=== PATIENT | male | born 1940 | race Caucasian/White ===

== ENCOUNTER → 2018-02-09 08:00 | Outpatient (CLI) | payer MEDICARE, SELFPAY ==
[2018-02-09 10:24] LABS: AST(SGOT) 33 U/L (15-37); Alanine Aminotransfer ALT/SGPT 43 U/L (16-61); Albumin, Serum 3.7 g/dL (3.2-5.0); Alkaline Phosphatase 70 U/L (45-117); Bilirubin, Direct 0.19 mg/dL (0.00-0.30); Cholesterol 107 mg/dL (200); Globulin 3.6 g/dL (2.2-4.2); High Density Lipoprotein 26 mg/dL; Protein, Total 7.3 g/dL (6.4-8.2); Triglycerides 211 mg/dL; Very Low Density Lipoprotein 42 mg/dL (5-40)
[2018-02-09 10:39] LABS: Thyroid Stim Hormone (TSH) 0.46 uIU/mL (0.358-3.74)
== END ==
PROVIDERS: Family Provider Family Medicine; PCP Family Medicine; Visit Provider Physician Assistant Medical
DX: E78.5 Hyperlipidemia, unspecified (principal); Z79.899 Other long term (current) drug therapy; E03.9 Hypothyroidism, unspecified
CPT/HCPCS: 36415; 80061; 80076; 84443

== ENCOUNTER → 2018-09-30 08:38 | Outpatient (CLI) | payer MEDICARE, SELFPAY ==
[2018-09-30 10:20] LABS: Absolute Neutrophil Count 2.9 X10^3/uL (2.0-7.7); Basophil# 0.02 X10^3/uL; Basophil% 0.4 % (0-1); Eosinophil# 0.16 X10^3/uL; Hematocrit 45.7 % (40-54); Hemoglobin 15.6 g/dl (13.0-16.5); Lymphocyte % 33.3 % (19-41); Mean Corp Hgb Conc 34.1 g/gl (32-36); Mean Corpuscular Hgb 32.7 pg (27.0-32.0); Mean Corpuscular Volume 95.8 fL (80-94); Mean Platelet Vol. 10.7 fl (6.2-12.0); Monocyte% 9.3 % (0-10); Neutrophil % 53.6 % (47-70); Platelet Count 181 K/mm3 (150-450); RBC Distribution Width CV 13.4 % (11.6-14.6); RBC Distribution Width SD 45.4 fl (35.1-43.9); Red Blood Count 4.77 M/mm3 (4.6-6.2); White Blood Count 5.4 K/mm3 (4.4-11.0)
[2018-09-30 10:24] LABS: POSITIVE COUNT NO; POSITIVE DIFFERENTIAL NO; POSITIVE MORPHOLOGY NO
[2018-09-30 10:34] LABS: Microalbumin,Random Urine 10.6 mg/L (NO RANGE EST.); Microalbumin:Creatinine Ratio 6.4 mg/g CRE (<30 mg/g CRE)
[2018-09-30 11:00] LABS: ALB/GLOB Ratio 0.9 RATIO (0.9-2.4); AST(SGOT) 28 U/L (15-37); Alanine Aminotransfer ALT/SGPT 35 U/L (16-61); Albumin, Serum 3.5 g/dL (3.2-5.0); Alkaline Phosphatase 70 U/L (45-117); Anion Gap 7 (5-15); BUN 17 mg/dL (7-18); BUN/Creat Ratio 18.2 RATIO (10-20); Bilirubin, Direct 0.16 mg/dL (0.00-0.30); Calcium,Total 8.7 mg/dL (8.5-10.1); Chloride 105 mmol/L (98-107); Cholesterol 118 mg/dL (200); Creatinine, Serum 0.93 mg/dL (0.70-1.30); EST Glomerular Filtration Rate 83 mL/min (>60); Est Glom Filt Rate - Afr Amer 101 mL/min (>60); Globulin 3.8 g/dL (2.2-4.2); Glucose 98 mg/dL (74-106); High Density Lipoprotein 29 mg/dL; Protein, Total 7.3 g/dL (6.4-8.2); Sodium Level 137 mmol/L (136-145); Thyroid Stim Hormone (TSH) 0.58 uIU/mL (0.358-3.74); Triglycerides 146 mg/dL; Very Low Density Lipoprotein 29 mg/dL (5-40)
== END ==
PROVIDERS: Family Provider Family Medicine; PCP Family Medicine; Referring Provider Family Medicine; Visit Provider Family Medicine
DX: I10 Essential (primary) hypertension (principal); E03.9 Hypothyroidism, unspecified; I25.810 Atherosclerosis of coronary artery bypass graft(s) without angina pectoris; R63.5 Abnormal weight gain
CPT/HCPCS: 36415; 80053; 80061; 82043; 82248; 82570; 84443; 85025

== ENCOUNTER → 2019-04-16 09:36 | Outpatient (CLI) | payer MEDICARE, SELFPAY ==
[2019-04-16 08:52] VITALS: BMI 27.7
[2019-04-16 11:19] LABS: AST(SGOT) 25 U/L (15-37); Alanine Aminotransfer ALT/SGPT 29 U/L (16-61); Albumin, Serum 3.7 g/dL (3.2-5.0); Alkaline Phosphatase 90 U/L (45-117); Bilirubin, Direct 0.18 mg/dL (0.00-0.30); Cholesterol 124 mg/dL (200); Globulin 4.1 g/dL (2.2-4.2); High Density Lipoprotein 31 mg/dL; Protein, Total 7.8 g/dL (6.4-8.2); Triglycerides 160 mg/dL; Very Low Density Lipoprotein 32 mg/dL (5-40)
== END ==
PROVIDERS: Family Provider Family Medicine; PCP Family Medicine; Referring Provider Physician Assistant Medical; Visit Provider Physician Assistant Medical
DX: E78.5 Hyperlipidemia, unspecified (principal)
CPT/HCPCS: 36415; 80061; 80076

== ENCOUNTER → 2019-12-15 | Outpatient (CLI) | payer MEDICARE, SELFPAY ==
[2019-04-16 08:52] VITALS: BMI 27.7
[2019-12-15 07:46] LABS: Absolute Lymphocyte Count 2.75 X10^3/uL (0.83-4.51); Absolute Neutrophil Count 4.7 X10^3/uL (2.0-7.7); Basophil# 0.04 X10^3/uL; Basophil% 0.5 % (0-1); Eosinophil# 0.19 X10^3/uL; Eosinophils% 2.2 % (0-5); Hematocrit 47.3 % (40-54); Hemoglobin 15.8 g/dL (13.0-16.5); Lymphocyte # 2.75 X10^3/ul (4.0); Lymphocyte % 32.3 % (19-41); Mean Corp Hgb Conc 33.4 g/dL (32-36); Mean Corpuscular Hgb 31.3 pg (27.0-32.0); Mean Corpuscular Volume 93.7 fL (80-94); Mean Platelet Vol. 9.8 fl (6.2-12.0); Monocyte# 0.76 X10^3/uL; Monocyte% 8.9 % (0-10); NRBC Flagged by Analyzer 0 % (0-5); Neutrophil # 4.74 X10^3/uL (2.7-7.7); Neutrophil % 55.7 % (47-70); Platelet Count 224 K/mm3 (150-450); RBC Distribution Width CV 13.1 % (11.6-14.6); RBC Distribution Width SD 44.8 fl (35.1-43.9); Red Blood Count 5.05 M/mm3 (4.6-6.2); White Blood Count 8.5 K/mm3 (4.4-11.0)
[2019-12-15 08:04] LABS: Microalbumin,Random Urine 9.6 mg/L (NO RANGE EST.); Microalbumin:Creatinine Ratio 7.1 mg/g CRE (<30 mg/g CRE)
[2019-12-15 08:10] LABS: ALB/GLOB Ratio 0.9 RATIO (0.9-2.4); AST(SGOT) 20 U/L (15-37); Alanine Aminotransfer ALT/SGPT 26 U/L (16-61); Albumin, Serum 3.6 g/dL (3.2-5.0); Alkaline Phosphatase 97 U/L (45-117); Anion Gap 9 (5-15); BUN 19 mg/dL (7-18); BUN/Creat Ratio 15.8 RATIO (10-20); Calcium,Total 9.5 mg/dL (8.5-10.1); Chloride 102 mmol/L (98-107); Cholesterol 118 mg/dL (200); EST Glomerular Filtration Rate 62 mL/min (>60); Est Glom Filt Rate - Afr Amer 75 mL/min (>60); Globulin 4.2 g/dL (2.2-4.2); Glucose 103 mg/dL (74-106); High Density Lipoprotein 33 mg/dL; Potassium 4.3 mmol/L (3.5-5.1); Protein, Total 7.8 g/dL (6.4-8.2); Sodium Level 136 mmol/L (136-145); Triglycerides 120 mg/dL; Very Low Density Lipoprotein 24 mg/dL (5-40)
== END | disposition home or self-care (01) ==
PROVIDERS: Physician Assistant Medical; PCP Family Medicine; Referring Provider Family Medicine; Visit Provider Family Medicine
DX: I10 Essential (primary) hypertension (principal); I25.810 Atherosclerosis of coronary artery bypass graft(s) without angina pectoris; R63.4 Abnormal weight loss; E78.5 Hyperlipidemia, unspecified
CPT/HCPCS: 36415; 80053; 80061; 82043; 82248; 82570; 85025

== ENCOUNTER → 2020-06-13 08:14 | Outpatient (CLI) | payer MEDICARE, SELFPAY ==
[2020-04-27 13:02] VITALS: BMI 26.9
[2020-06-13 08:57] LABS: AST(SGOT) 26 U/L (15-37); Alanine Aminotransfer ALT/SGPT 30 U/L (16-61); Albumin, Serum 3.8 g/dL (3.2-5.0); Alkaline Phosphatase 86 U/L (45-117); Cholesterol 134 mg/dL (200); Globulin 4.2 g/dL (2.2-4.2); High Density Lipoprotein 33 mg/dL; Triglycerides 178 mg/dL; Very Low Density Lipoprotein 36 mg/dL (5-40)
[2020-06-13 14:56] LABS: PSA,Total - Annual Screen 1.72 ng/mL (0.00-4.00)
== END ==
PROVIDERS: PCP Family Medicine; Referring Provider Physician Assistant Medical; Visit Provider Physician Assistant Medical
DX: E78.5 Hyperlipidemia, unspecified (principal); Z12.5 Encounter for screening for malignant neoplasm of prostate
CPT/HCPCS: 36415; 80061; 80076; 84153; G0103

== ENCOUNTER → 2020-10-24 09:06 | Outpatient (CLI) | payer MEDICARE, SELFPAY ==
[2020-04-27 13:02] VITALS: BMI 26.9
[2020-10-24 10:15] LABS: Microalbumin,Random Urine 15.2 mg/L (NO RANGE EST.); Microalbumin:Creatinine Ratio 13.7 mg/g CRE (<30 mg/g CRE)
[2020-10-24 10:57] LABS: ALB/GLOB Ratio 0.9 RATIO (0.9-2.4); AST(SGOT) 26 U/L (15-37); Alanine Aminotransfer ALT/SGPT 31 U/L (16-61); Albumin, Serum 3.7 g/dL (3.2-5.0); Alkaline Phosphatase 81 U/L (45-117); Anion Gap 6 (5-15); BUN 17 mg/dL (7-18); Bilirubin, Direct 0.21 mg/dL (0.00-0.30); Calcium,Total 9.4 mg/dL (8.5-10.1); Chloride 102 mmol/L (98-107); Cholesterol 130 mg/dL (200); EST Glomerular Filtration Rate 77 mL/min (>60); Est Glom Filt Rate - Afr Amer 93 mL/min (>60); Glucose 94 mg/dL (74-106); High Density Lipoprotein 31 mg/dL; Potassium 4.6 mmol/L (3.5-5.1); Protein, Total 7.7 g/dL (6.4-8.2); Sodium Level 135 mmol/L (136-145); Thyroid Stim Hormone (TSH) 4.08 uIU/mL (0.358-3.74); Triglycerides 182 mg/dL; Very Low Density Lipoprotein 36 mg/dL (5-40)
== END ==
PROVIDERS: PCP Family Medicine; Referring Provider Physician Assistant Medical; Visit Provider Physician Assistant Medical
DX: I10 Essential (primary) hypertension (principal); E03.9 Hypothyroidism, unspecified
CPT/HCPCS: 36415; 80053; 80061; 82043; 82248; 82570; 84439; 84443

== ENCOUNTER 2021-09-03 08:41 | Outpatient (CLI) | payer MEDICARE, SELFPAY ==
[2021-09-03 10:58] LABS: AST(SGOT) 24 U/L (15-37); Alanine Aminotransfer ALT/SGPT 33 U/L (16-61); Albumin, Serum 3.6 g/dL (3.2-5.0); Alkaline Phosphatase 77 U/L (45-117); Bilirubin, Direct 0.19 mg/dL (0.00-0.30); Cholesterol 123 mg/dL (200); Globulin 3.9 g/dL (2.2-4.2); High Density Lipoprotein 30 mg/dL; Protein, Total 7.5 g/dL (6.4-8.2); Triglycerides 163 mg/dL; Very Low Density Lipoprotein 33 mg/dL (5-40)
[2021-09-03 11:11] LABS: T4 Free Direct 1.08 ng/dL (0.76-1.46); Thyroid Stim Hormone (TSH) 1.04 uIU/mL (0.358-3.74)
== END 2021-09-03 23:59 | disposition short-term general hospital (02) ==
LOC: LAB 08:43
PROVIDERS: PCP Family Medicine; Referring Provider Internal Medicine Cardiovascular Disease; Visit Provider Internal Medicine Cardiovascular Disease
DX: E78.00 Pure hypercholesterolemia, unspecified (principal); E03.9 Hypothyroidism, unspecified
CPT/HCPCS: 36415; 80061; 80076; 84439; 84443

== ENCOUNTER 2021-09-04 10:33 | Outpatient (CLI) | payer MEDICARE, SELFPAY ==
[2021-09-04 13:00] LABS: Microalbumin,Random Urine 65.6 mg/L (NO RANGE EST.); Microalbumin:Creatinine Ratio 58.1 mg/g CRE (<30 mg/g CRE)
== END 2021-09-04 23:59 | disposition short-term general hospital (02) ==
LOC: MFPLAB 10:34
PROVIDERS: PCP Family Medicine; Referring Provider Family Medicine; Visit Provider Family Medicine
DX: Z00.00 Encounter for general adult medical examination without abnormal findings (principal); I10 Essential (primary) hypertension
CPT/HCPCS: 82043; 82570

== ENCOUNTER 2022-03-04 08:45 | Outpatient (CLI) | payer MEDICARE, SELFPAY ==
[2022-03-04 10:29] LABS: Cholesterol 127 mg/dL (200); High Density Lipoprotein 30 mg/dL; Triglycerides 153 mg/dL; Very Low Density Lipoprotein 31 mg/dL (5-40)
[2022-03-04 10:33] LABS: AST(SGOT) 27 U/L (15-37); Alanine Aminotransfer ALT/SGPT 37 U/L (16-61); Albumin, Serum 3.8 g/dL (3.2-5.0); Alkaline Phosphatase 71 U/L (45-117); Anion Gap 5 (5-15); BUN 20 mg/dL (7-18); BUN/Creat Ratio 21.1 RATIO (10-20); Bilirubin, Direct 0.19 mg/dL (0.00-0.30); Calcium,Total 9.5 mg/dL (8.5-10.1); Chloride 102 mmol/L (98-107); Creatinine, Serum 0.95 mg/dL (0.70-1.30); EST Glomerular Filtration Rate 81 mL/min (>60); Est Glom Filt Rate - Afr Amer 98 mL/min (>60); Globulin 3.8 g/dL (2.2-4.2); Glucose 101 mg/dL (74-106); Potassium 4.3 mmol/L (3.5-5.1); Protein, Total 7.6 g/dL (6.4-8.2); Sodium Level 134 mmol/L (136-145)
[2022-03-04 10:35] LABS: Microalbumin,Random Urine 17.2 mg/L (NO RANGE EST.); Microalbumin:Creatinine Ratio 12.6 mg/g CRE (<30 mg/g CRE)
[2022-03-04 10:43] LABS: Vitamin D,25 Hydroxy 53.8 ng/mL
== END 2022-03-04 23:59 | disposition home or self-care (01) ==
PROVIDERS: PCP Family Medicine; Referring Provider Physician Assistant Medical; Visit Provider Physician Assistant Medical
DX: I10 Essential (primary) hypertension (principal); E78.5 Hyperlipidemia, unspecified; N18.2 Chronic kidney disease, stage 2 (mild)
CPT/HCPCS: 36415; 80053; 80061; 82043; 82248; 82306; 82570

== ENCOUNTER 2022-06-07 08:28 | Emergency (ER) | payer MEDICARE, SELFPAY ==
[2022-06-07 08:31] VITALS: BP 180/83; PULSE 59; RESP 16; TEMP 36.4; O2SAT 98; BMI 26.4
--- NOTE | 2022-06-07 08:43 | EKG12_ITS ---
Test Reason : DIZZY Blood Pressure : / mmHG Vent. Rate : 057 BPM Atrial Rate : 057 BPM P-R Int : 200 ms QRS Dur : 094 ms QT Int : 422 ms P-R-T Axes : 000 -09 045 degrees QTc Int : 410 ms Sinus bradycardia with marked sinus arrhythmia Otherwise normal ECG Confirmed by SOLIS MUSA, MELISSA ([id number]), scientific editor ANJALI PEREZ ([id number]) on 06/10/2022 11:38:04 AM Referred By: Confirmed By:MELISSA ELY MD
--- NOTE | 2022-06-07 08:43 | CT_ITS ---
STUDY: CTA HEAD AND NECK WITH CONTRAST REASON FOR EXAM: Male, 82 years old. Vertigo. RADIATION DOSAGE (If Supplied By Facility): CTDIvol = ( 30.61 ) mGy, DLP = ( 1451.54 ) mGycm TECHNIQUE: CT angiography was performed with a multi-detector CT scanner. Data acquisition was obtained from the skull base through the vertex following intravenous administration of IV 100mL Isovue-[id number]. MIP images were reconstructed from the axial data set. Post-processing of the angiographic images was performed, with multiplanar reformation and 3D reconstruction. Individualized dose optimization techniques were used for this CT. COMPARISON: No relevant priors. FINDINGS: Normal bilateral petrous carotid arteries. Normal right cavernous carotid artery with a normal supraclinoid bifurcation. There is calcified plaque formation of the left cavernous carotid artery, without a cross-sectional luminal stenosis. Normal right A1 segments of the anterior cerebral artery. Normal left A1 segments of the anterior cerebral artery. Normal intact anterior communicating artery (ACOM). Normal bilateral A2 segments of the anterior cerebral arteries. Normal right M1 and M2 segments of the middle cerebral arteries, with a normal M1 bifurcation. Normal left M1 and M2 segments of the middle cerebral arteries, with a normal M1 bifurcation. Normal right posterior communicating artery (PCOM). Normal left posterior communicating artery (PCOM). Normal bilateral vertebral arteries. Normal basilar artery with a normal basilar bifurcation. The visualized bilateral superior cerebellar (SCA) arteries are normal. Normal bilateral P1, P2 and visualized P3 segments of the posterior cerebral arteries. There is no demonstrated aneurysm of the ruby of [place]. Atherosclerotic calcification of the vertebral arteries. Cerebral atrophy. AORTIC ARCH: There is atherosclerotic calcific plaque formation of the aortic arch and great vessels arising from the aortic arch, without a hemodynamically significant stenosis. There is a normal origin of the brachiocephalic, left common carotid, and left subclavian arteries. Prior CABG. Atherosclerotic calcific plaques at the origin of the left common carotid artery and left subclavian artery. RIGHT CAROTID ARTERIES: Normal right common carotid artery (CCA). Normal right common carotid bulb. There is mild atherosclerotic plaque formation of the origin of the right internal carotid artery with less than 50% cross sectional diameter stenosis. Normal visualized cervical portion of the right internal carotid artery. Normal origin of the right external carotid artery (ECA). LEFT CAROTID ARTERIES: Normal left common carotid artery (CCA). Normal left common carotid bulb. There is mild atherosclerotic plaque formation of the origin of the left internal carotid artery with less than 50% cross sectional diameter stenosis. Normal visualized cervical portion of the left internal carotid artery. Normal origin of the left external carotid artery (ECA). VERTEBRAL ARTERIES: Normal bilateral vertebral arteries. CT/CTA Head AND Neck W/ Contrast IMPRESSION: Mild degree of calcific plaques at the origin of the right and left internal carotid arteries causing less than 50% stenosis. Electronically Signed: Gabriel Kang MD at 9:59 EDT ,
--- NOTE | 2022-06-07 08:45 | EX.ED.DYSGE1 ---
HPI History of Present Illness Chief Complaint: Dizziness Informant: patient Onset/Context/Timing Onset: Yesterday Timing: Intermittent and Lasts (5 to 10 seconds) Narrative Narrative: Patient presents with intermittent episodes of vertigo. He states he was working outside yesterday and felt fine. Around 2 or 3 PM yesterday he was standing in his kitchen when he suddenly felt like he was spinning and turning to the right. He had to hold onto something. He states symptoms seem to last only 5 to 10 seconds. He has had multiple recurrent episodes like this and states anytime he wants to go up and walk anywhere he is holding onto something. He denies chest pain or palpitations. No weakness in the extremities. No paresthesias. No headache. [facility] Medical History (Updated 06/07/22 @ 11:[address] Vanesa Arcos MD) Atherosclerotic heart disease of [place] coronary artery without angina pectoris GERD (gastroesophageal reflux disease) Hyperlipidemia Hypertension Hypothyroidism Narcolepsy Sinus bradycardia Home Medications aspirin 325 mg tablet 325 mg PO QDAY 12/31/17 [History Last Taken Unknown] coenzyme Q10 100 mg capsule (Co Q-10) 100 mg PO QDAY 12/31/17 [History Last Taken Unknown] levothyroxine 125 mcg tablet 125 mcg PO QDAY 12/31/17 [History Last Taken Unknown] meloxicam 15 mg tablet 15 mg PO QDAY 12/31/17 [History Last Taken Unknown] multivitamin 1 tab PO QDAY 12/31/17 [History Last Taken Unknown] saw palmetto 160 mg capsule 160 mg PO BID 12/31/17 [History Last Taken Unknown] selenium 100 mcg tablet 100 mcg PO QDAY 12/31/17 [History Last Taken Unknown] isosorbide dinitrate 5 mg tablet 5 mg PO QDAY 03/30/18 [History Last Taken Unknown] omeprazole 40 mg capsule,delayed release 40 mg PO .4XWEEK 01/03/20 [History Last Taken Unknown] zinc 50 mg tablet 50 mg PO DAILY 04/27/20 [History Last Taken Unknown] amlodipine 2.5 mg tablet (Norvasc) 2.5 mg PO DAILY #90 tabs 10/04/21 [Rx Last Taken Unknown] pravastatin 40 mg tablet 40 mg PO QHS #90 tabs 11/28/21 [Rx Last Taken Unknown] losartan 50 mg tablet (Cozaar) 50 mg PO BID #180 tabs 02/12/22 [Rx Last Taken Unknown] meclizine 25 mg tablet 25 mg PO TID PRN dizziness #20 tabs 06/07/22 [Rx Last Taken Unknown] Allergy/AdvReac Type Severity Reaction Status Date / Time No Known Allergies Allergy Verified 06/07/22 08:33 Surgical History History of carpal tunnel surgery History of colon surgery History of coronary artery bypass surgery (~01/30/97) History of gastric surgery (~2016) History of hernia repair History of knee surgery Hx of appendectomy Social History Smoking Status: Never smoker alcohol intake: current details: occasional substance use type: does not use caffeine: Yes Type: coffee Number of servings: 6 ROS ROS ED Constitutional Constitutional ED: Denies chills or fever(s) Eyes Eyes: Denies change in vision or discharge from eye(s) ENT ENT ED: Denies discharge from eye(s), rhinorrhea or sore throat Cardiovascular Cardiovascular: Denies chest pain or palpitations Respiratory/Chest Respiratory/Chest: Denies cough or dyspnea Gastrointestinal Gastrointestinal: Denies abdominal pain, diarrhea, nausea or vomiting Genitourinary Genitourinary ED: Denies difficulty urinating or dysuria Musculoskeletal Musculoskeletal: Denies back pain or extremity pain Integumentary Denies Abrasions or rash Neurologic Neurologic: Reports other Details: Vertigo/dizziness ; Denies headache(s) or weakness Psychiatric Psychiatric: Denies anxiety or depression Allergic/Immunologic Allergic/Immunologic ED: Denies lip swelling or urticaria EXAM Physical Exam Const Vital Signs: 06/07/22 08:31 06/07/22 08:34 06/07/22 10:39 Temperature 97.6 F L Temperature Source Oral Pulse Rate 59 L 52 L Respiratory Rate 16 20 H Respiratory Effort Normal Non-Labored Respiratory Pattern Normal Blood Pressure 180/83 H 148/69 H Blood Pressure Mean 115 95 Pulse Ox 98 98 Oxygen Delivery Method Room Air Room Air Positive well nourished and well developed General Appearance ED: well developed HEENT Reports normocephalic and head/scalp atraumatic Eyes PERRL and EOMs intact bilaterally Neck supple Chest Wall inspection of chest normal and palpation of chest normal Resp normal respiratory effort and clear to auscultation bilaterally Cardio regular rate and regular rhythm GI normal to inspection, nondistended, normoactive bowel sounds Palpation: soft Extremity normal to inspection Neuro oriented x3 and no sensory deficits noted Neuro Narrative: NIH equals 0 Sensorium / Orientation: alert Motor Exam: strength 5/5 throughout Psych mental status grossly normal Skin no rashes or lesions noted MDM MDM MDM Narrative Medical decision making narrative: EKG and lab work obtained. CTA of the head and neck ordered. Lab Data Attestation: I reviewed the patient's lab results. Labs: Laboratory Results - last 24 hr 06/07/22 06/07/22 08:40 08:40 WBC 7.0 RBC 4.88 Hgb 16.2 Hct 45.9 MCV 94.1 H MCH 33.2 H MCHC 35.3 RDW Std Deviation 43.3 RDW Coeff of Owen 12.5 Plt Count 188 MPV 9.5 Immature Gran % (Auto) 0.400 Neut % (Auto) 54.4 Lymph % (Auto) 34.4 [place] % (Auto) 8.0 Eos % (Auto) 2.2 Baso % (Auto) 0.6 Absolute Neuts (auto) 3.8 Absolute Lymphs (auto) 2.40 Nucleated RBC % 0 Sodium 139 Potassium 4.0 Chloride 106 Carbon Dioxide 23.0 Anion Gap 10 BUN 15 Creatinine 1.00 Estim Creat Clear Calc 54.17 Est GFR (MDRD) Af Amer 92 Est GFR (MDRD) Non-Af 76 BUN/Creatinine Ratio 15.0 Glucose 116 H Calcium 9.0 Radiography Diagnostic Testing: Clinical Impression(s) from Imaging Studies Head/Neck CTA 06/07/22 08:43 IMPRESSION: Mild degree of calcific plaques at the origin of the right and left internal carotid arteries causing less than 50% stenosis. Electronically Signed: Gabriel Kang MD at 9:59 EDT , ADDENDUM: 06/07/22 1058 IMPRESSION: undefined EKG Initial EKG: Attestation: I personally reviewed and interpreted this EKG as follows: Interpretation: Sinus Bradycardia (Sinus bradycardia at 57 bpm. No acute ischemia.) Treatment and Re-Evaluation Narrative: Lab work is unremarkable. CTA of the head and neck reveals mild calcific plaques with less than 50% stenosis. No acute findings appreciated. Patient was given p.o. Antivert. On repeat evaluation he does report improvement and is able to ambulate to the restroom and back without difficulty. I will write him for Antivert at home. I do believe his symptoms are consistent with peripheral vertigo. Return instructions are given. Discharge Plan Triage Chief Complaint: Dizziness ED Provider: Vanesa Arcos Dx/Rx/DC Orders Clinical Impression: Vertigo Instructions: ED BPV Vertigo Prescriptions: New meclizine 25 mg tablet 25 mg PO TID PRN (Reason: dizziness) Qty: 20 0RF No Action isosorbide dinitrate 5 mg tablet 5 mg PO QDAY meloxicam 15 mg tablet 15 mg PO QDAY coenzyme Q10 [Co Q-10] 100 mg capsule 100 mg PO QDAY selenium 100 mcg tablet 100 mcg PO QDAY aspirin 325 mg tablet 325 mg PO QDAY multivitamin tablet 1 tab PO QDAY saw palmetto 160 mg capsule 160 mg PO BID levothyroxine 125 mcg tablet 125 mcg PO QDAY omeprazole 40 mg capsule,delayed release(DR/EC) 40 mg PO .4XWEEK zinc 50 mg tablet 50 mg PO DAILY amlodipine [Norvasc] 2.5 mg tablet 2.5 mg PO DAILY Qty: 90 3RF pravastatin 40 mg tablet 40 mg PO QHS Qty: 90 3RF losartan [Cozaar] 50 mg tablet 50 mg PO BID Qty: 180 4RF Primary Care Provider: Robert Mireles Referrals: Robert Mireles MD [Primary Care Provider] - 3-5 Days if not improving Disposition Disposition: Home, Self Care
[2022-06-07] MEDS: 0.9% Normal Saline 1,000 ML 150 ML IV (08:52)
[2022-06-07 08:58] LABS: Absolute Neutrophil Count 3.8 X10^3/uL (2.0-7.7); Basophil# 0.04 X10^3/uL; Basophil% 0.6 % (0-1); Eosinophil# 0.15 X10^3/uL; Eosinophils% 2.2 % (0-5); Hematocrit 45.9 % (40-54); Hemoglobin 16.2 g/dL (13.0-16.5); Lymphocyte % 34.4 % (19-41); Mean Corp Hgb Conc 35.3 g/dL (32-36); Mean Corpuscular Hgb 33.2 pg (27.0-32.0); Mean Corpuscular Volume 94.1 fL (80-94); Mean Platelet Vol. 9.5 fl (6.2-12.0); Monocyte# 0.56 X10^3/uL; NRBC Flagged by Analyzer 0 % (0-5); Neutrophil # 3.79 X10^3/uL (2.7-7.7); Neutrophil % 54.4 % (47-70); Platelet Count 188 K/mm3 (150-450); RBC Distribution Width CV 12.5 % (11.6-14.6); RBC Distribution Width SD 43.3 fl (35.1-43.9); Red Blood Count 4.88 M/mm3 (4.6-6.2)
[2022-06-07 09:14] LABS: Anion Gap 10 (5-15); BUN 15 mg/dL (7-18); Chloride 106 mmol/L (98-107); EST Glomerular Filtration Rate 76 mL/min (>60); Est Glom Filt Rate - Afr Amer 92 mL/min (>60); Estimated Creatinine Clearance 54.17 ml/min; Glucose 116 mg/dL (74-106); Sodium Level 139 mmol/L (136-145)
[2022-06-07] MEDS: Meclizine HCl 25 MG Tablet PO (10:37)
[2022-06-07 10:39] VITALS: BP 148/69; PULSE 52; RESP 20; O2SAT 98
[2022-06-07 12:07] VITALS: BP 166/74; PULSE 74; RESP 16; O2SAT 98
== END 2022-06-07 12:09 | disposition home or self-care (01) ==
PROVIDERS: Emergency Provider Emergency Medicine; PCP Family Medicine; Visit Provider Emergency Medicine
DX: R42 Dizziness and giddiness (principal); E78.5 Hyperlipidemia, unspecified; I10 Essential (primary) hypertension; I25.10 Atherosclerotic heart disease of native coronary artery without angina pectoris
CPT/HCPCS: 70496; 70498; 80048; 85025; 93005; 96360; 96361; 99285; J7030; Q9967; A4216

== ENCOUNTER → 2022-09-04 | Outpatient (CLI) | payer MEDICARE, SELFPAY ==
[2022-09-04 09:56] LABS: Microalbumin,Random Urine 12.2 mg/L (NO RANGE EST.); Microalbumin:Creatinine Ratio 10.7 mg/g CRE (<30 mg/g CRE)
[2022-09-04 10:00] LABS: Vitamin B12 702 pg/mL (211-911); Vitamin D,25 Hydroxy 37.8 ng/mL
[2022-09-04 10:02] LABS: AST(SGOT) 24 U/L (15-37); Alanine Aminotransfer ALT/SGPT 27 U/L (16-61); Albumin, Serum 3.8 g/dL (3.2-5.0); Alkaline Phosphatase 74 U/L (45-117); Bilirubin, Direct 0.23 mg/dL (0.00-0.30); Cholesterol 129 mg/dL (200); Globulin 3.9 g/dL (2.2-4.2); High Density Lipoprotein 31 mg/dL; Protein, Total 7.7 g/dL (6.4-8.2); Triglycerides 137 mg/dL; Very Low Density Lipoprotein 27 mg/dL (5-40)
[2022-09-04 10:05] LABS: AST(SGOT) 24 U/L (15-37); Alanine Aminotransfer ALT/SGPT 27 U/L (16-61); Albumin, Serum 3.8 g/dL (3.2-5.0); Alkaline Phosphatase 74 U/L (45-117); Anion Gap 7 (5-15); BUN 14 mg/dL (7-18); BUN/Creat Ratio 13.2 RATIO (10-20); Calcium,Total 9.4 mg/dL (8.5-10.1); Chloride 103 mmol/L (98-107); Cholesterol 127 mg/dL (200); Creatinine, Serum 1.06 mg/dL (0.70-1.30); EST Glomerular Filtration Rate 71 mL/min (>60); Est Glom Filt Rate - Afr Amer 86 mL/min (>60); Globulin 3.9 g/dL (2.2-4.2); Glucose 111 mg/dL (74-106); High Density Lipoprotein 31 mg/dL; PSA,Total - Annual Screen 2.03 ng/mL (0.00-4.00); Potassium 4.4 mmol/L (3.5-5.1); Protein, Total 7.7 g/dL (6.4-8.2); Sodium Level 135 mmol/L (136-145); Triglycerides 134 mg/dL; Very Low Density Lipoprotein 27 mg/dL (5-40)
[2022-09-06 12:11] LABS: T4 Free Direct 1.09 ng/dL (0.76-1.46); Thyroid Stim Hormone (TSH) 1.16 uIU/mL (0.358-3.74)
== END | disposition home or self-care (01) ==
LOC: LAB 09:02
PROVIDERS: PCP Family Medicine; Referring Provider Internal Medicine Cardiovascular Disease; Visit Provider Internal Medicine Cardiovascular Disease
DX: N18.2 Chronic kidney disease, stage 2 (mild) (principal); E78.5 Hyperlipidemia, unspecified; I25.10 Atherosclerotic heart disease of native coronary artery without angina pectoris; R71.8 Other abnormality of red blood cells; Z12.5 Encounter for screening for malignant neoplasm of prostate
CPT/HCPCS: 36415; 80053; 80061; 80076; 82043; 82306; 82570; 82607; 84153; 84439; 84443; G0103

== ENCOUNTER → 2023-02-10 | Outpatient (CLI) | payer MEDICARE, SELFPAY ==
[2023-02-10 13:04] LABS: Microalbumin,Random Urine 14.6 mg/L (NO RANGE EST.)
[2023-02-10 13:18] LABS: AST(SGOT) 25 U/L (15-37); Alanine Aminotransfer ALT/SGPT 30 U/L (16-61); Albumin, Serum 3.6 g/dL (3.2-5.0); Alkaline Phosphatase 69 U/L (45-117); Bilirubin, Direct 0.24 mg/dL (0.00-0.30); Cholesterol 119 mg/dL (200); High Density Lipoprotein 31 mg/dL; Protein, Total 7.6 g/dL (6.4-8.2); Triglycerides 175 mg/dL; Very Low Density Lipoprotein 35 mg/dL (5-40)
[2023-02-10 14:26] LABS: ALB/GLOB Ratio 0.9 RATIO (0.9-2.4); Anion Gap 6 (5-15); BUN 15 mg/dL (7-18); BUN/Creat Ratio 14.9 RATIO (10-20); Calcium,Total 9.2 mg/dL (8.5-10.1); Chloride 107 mmol/L (98-107); Creatinine, Serum 1.01 mg/dL (0.70-1.30); EST Glomerular Filtration Rate 75 mL/min (>60); Est Glom Filt Rate - Afr Amer 91 mL/min (>60); Glucose 99 mg/dL (74-106); Potassium 4.3 mmol/L (3.5-5.1); Sodium Level 136 mmol/L (136-145)
== END | disposition home or self-care (01) ==
LOC: MTLAB 09:30
PROVIDERS: Internal Medicine Cardiovascular Disease; PCP Family Medicine; Referring Provider Family Medicine; Visit Provider Family Medicine
DX: I12.9 Hypertensive chronic kidney disease with stage 1 through stage 4 chronic kidney disease, or unspecified chronic kidney disease (principal); N18.2 Chronic kidney disease, stage 2 (mild); I25.810 Atherosclerosis of coronary artery bypass graft(s) without angina pectoris
CPT/HCPCS: 36415; 80053; 80061; 80076; 82043; 82248; 82570

== ENCOUNTER → 2023-06-04 | Outpatient (CLI) | payer MEDICARE, SELFPAY ==
[2023-06-04 18:38] LABS: Anion Gap 9 (5-15); BUN 17 mg/dL (7-18); BUN/Creat Ratio 16.7 RATIO (10-20); Calcium,Total 9.7 mg/dL (8.5-10.1); Chloride 104 mmol/L (98-107); Creatinine, Serum 1.02 mg/dL (0.70-1.30); EST Glomerular Filtration Rate 74 mL/min (>60); Est Glom Filt Rate - Afr Amer 90 mL/min (>60); Glucose 93 mg/dL (74-106); Sodium Level 136 mmol/L (136-145); Thyroid Stim Hormone (TSH) 1.56 uIU/mL (0.358-3.74)
== END | disposition home or self-care (01) ==
PROVIDERS: PCP Family Medicine; Referring Provider Family Medicine; Visit Provider Family Medicine
DX: E03.9 Hypothyroidism, unspecified (principal); E55.9 Vitamin D deficiency, unspecified; I10 Essential (primary) hypertension
CPT/HCPCS: 36415; 80048; 82306; 84443

== ENCOUNTER → 2023-11-24 | Outpatient (CLI) | payer MEDICARE, SELFPAY ==
--- NOTE | 2023-11-24 10:40 | STRESSREP_ITS ---
Stress Test Report Date: 11/24/2023 Procedure: Exercise tolerance test/imaging study Indications: Coronary artery disease Consent: Per the patient Procedure: The patient exercised on a Wiley protocol for 7 minutes and 46 seconds achieving a peak heart rate of 118 bpm (85% predicted maximal heart rate) with a peak blood pressure 178/78 mmHg and a peak MET capacity of 10.1 METs. The baseline ECG demonstrated sinus rhythm. The peak exercise ECG demonstrated no diagnostic changes secondary to baseline artifact. Rare PVCs noted during recovery. The functional capacity was considered good for age. There was no complaint of chest discomfort during exercise or recovery. The examination was discontinued secondary to target heart rate being achieved and dyspnea. The patient was injected with 12.6 mCi of technetium 99m Cardiolite and subsequently rest SPECT Cardiolite nuclear imaging was obtained in the horizontal long, vertical long, and short axis views. Post-exercise, the patient was injected with 35.4 mCi of technetium 99m Cardiolite and subsequently stress SPECT Cardiolite nuclear imaging was obtained in the horizontal long, vertical long, and short axis views. A gated Cardiolite study at peak stress was obtained. Rest and stress SPECT Cardiolite nuclear imaging status post realignment, normalization, and attenuation correction, demonstrates a very small reversible defect in the basal septum. There is end systolic thickening and brightening. The gated Cardiolite study demonstrates myocardial thickening and inward wall motion. The reported LVEF is 60%. Impression: 1. Technically adequate (percent predicted maximal heart rate greater than 85%) exercise tolerance test 2. Peak exercise ECG nondiagnostic 3. Rare PVC in recovery 4. Rest and stress SPECT Cardiolite nuclear imaging demonstrate a very small reversible perfusion defect of the basal septum that may denote minimal to mild ischemia. 5. The gated Cardiolite study reports an LVEF of 60%. This note was generated with [employer] software. It may contain incorrect words, spelling, and punctuation that were not noted in checking the note before signing.
== END | disposition home or self-care (01) ==
LOC: CVS 06:00
PROVIDERS: PCP Family Medicine; Referring Provider Physician Assistant Medical; Visit Provider Physician Assistant Medical
DX: I25.10 Atherosclerotic heart disease of native coronary artery without angina pectoris (principal)
CPT/HCPCS: 78452; 93017; A9500; A4216

== ENCOUNTER → 2024-01-08 | Outpatient (CLI) | payer MEDICARE, SELFPAY ==
--- NOTE | 2024-01-08 09:52 | RAD_ITS ---
STUDY: X-RAY CHEST REASON FOR EXAM: Male, 83 years old. [place] TECHNIQUE: AP portable COMPARISON: December 06, 2015 FINDINGS: The lungs are clear and expanded. There is no demonstrated pleural abnormality. Normal size heart. Normal mediastinum and ori. Normal visualized pulmonary arteries. Mildly calcified aortic arch and descending thoracic aorta. Postop change status post median sternotomy and CABG. Normal visualized thoracic spine. Normal visualized ribs, clavicles, and shoulders. There is no demonstrated abnormality of the visualized soft tissue structures of the upper abdomen. No significant change since prior study RAD/Chest PA and Lateral IMPRESSION: No acute cardiopulmonary pathology Electronically Signed: Greg Romano MD at 17:28 EDT ,
[2024-01-08 11:14] LABS: Absolute Lymphocyte Count 1.68 X10^3/uL (0.83-4.51); Absolute Neutrophil Count 3.7 X10^3/uL (2.0-7.7); Basophil# 0.05 X10^3/uL; Basophil% 0.8 % (0-1); Eosinophil# 0.13 X10^3/uL; Eosinophils% 2.2 % (0-5); Hematocrit 45.7 % (40-54); Hemoglobin 15.6 g/dL (13.0-16.5); Lymphocyte # 1.68 X10^3/ul (0.83-4.51); Mean Corp Hgb Conc 34.1 g/dL (32-36); Mean Corpuscular Hgb 32.2 pg (27.0-32.0); Mean Corpuscular Volume 94.4 fL (80-94); Mean Platelet Vol. 10.1 fl (6.2-12.0); Monocyte# 0.47 X10^3/uL; Monocyte% 7.8 % (0-10); NRBC Flagged by Analyzer 0 % (0-5); Neutrophil # 3.66 X10^3/uL (2.7-7.7); Neutrophil % 60.9 % (47-70); Platelet Count 199 K/mm3 (150-450); RBC Distribution Width SD 44.5 fl (35.1-43.9); Red Blood Count 4.84 M/mm3 (4.6-6.2)
[2024-01-08 11:45] LABS: Anion Gap 8 (5-15); BUN 16 mg/dL (7-18); BUN/Creat Ratio 14.8 RATIO (10-20); Calcium,Total 9.8 mg/dL (8.5-10.1); Chloride 105 mmol/L (98-107); Creatinine, Serum 1.08 mg/dL (0.70-1.30); EST Glomerular Filtration Rate 70 mL/min (>60); Est Glom Filt Rate - Afr Amer 84 mL/min (>60); Glucose 124 mg/dL (74-106); Potassium 3.7 mmol/L (3.5-5.1); Sodium Level 135 mmol/L (136-145)
== END | disposition home or self-care (01) ==
PROVIDERS: PCP Family Medicine; Referring Provider Physician Assistant Medical; Visit Provider Physician Assistant Medical
DX: R94.39 Abnormal result of other cardiovascular function study (principal)
CPT/HCPCS: 36415; 71046; 80048; 85025

== ENCOUNTER → 2024-01-28 | Day surgery (SDC) | payer MEDICARE, SELFPAY ==
[2024-01-27 08:26] VITALS: BMI 27.7
== END | disposition home or self-care (01) ==
LOC: CLSP 07:59
PROVIDERS: PCP Family Medicine; Referring Provider Internal Medicine Cardiovascular Disease; Visit Provider Internal Medicine Cardiovascular Disease
DX: R94.39 Abnormal result of other cardiovascular function study (principal); R07.9 Chest pain, unspecified; Z79.82 Long term (current) use of aspirin

== ENCOUNTER → 2024-05-25 | Outpatient (CLI) | payer MEDICARE, SELFPAY ==
--- NOTE | 2024-05-25 13:38 | RAD_ITS ---
INDICATION: Idiopathic gout, right ankle and foot EXAMINATION/TECHNIQUE: X-RAY - RIGHT XR Foot Min 3 Views 3 VIEWS COMPARISON: No relevant prior comparison study available FINDINGS: SOFT TISSUES: No soft tissue swelling or gas. Surgical clips in the medial aspect of the ankle. BONES/JOINTS: No acute fracture or subluxation.. Normal alignment. Preservation of the joint space.. No sclerotic or destructive changes observed. RAD/Foot min 3 Views IMPRESSION: No demonstrated acute changes. No erosive changes are seen. Electronically Signed: Rusty Gerardo MD at 13:11 EDT ,
--- OUTSIDE RECORDS SUMMARY | 2024-05-25 14:14 | XMS RPT_ITS | CCD ---
Author Organization [facility] Care Team Providers Care Architectural Intern Name Role Phone Ines Lopez Unavailable Unavailable Gillian Haywood Unavailable Unavailable GAURAV Limon, Suzette Finney Unavailable Medications Completed/Discontinued Medications Medication Drug Class(es) Dates Sig (Normalized) Sig (Original) aspirin 325 mg oral tablet (3 sources) Nonsteroidal Anti-inflammatory Drug Start: 01-07-2011 take 1 tablet by mouth once daily ASPIRIN 325 MG TABS One tablet by mouth daily ASPIRIN [id number] Gayle Medina atenolol 25 mg oral tablet (6 sources) beta-Adrenergic Elyssa Start: 01-07-2011 End: 03-05-2013 ATENOLOL 25 MG TABS 1/2 tablet daily ATENOLOL [id number] Trace Azul MD calcium carbonate 500 mg chewable tablet (6 sources) Start: 03-18-2016 End: 12-23-2016 take 1 tablet by mouth once daily TUMS 500 MG CHEW One tablet by mouth daily CALCIUM CARBONATE ANTACID [id number] Suzette Limon PA-C COENZYME Q10 (3 sources) Start: 06-11-2013 take 1 tablet by mouth once daily CO Q-10 100 MG CAPS One tablet by mouth daily COENZYME Q10 [id number] Nakia Poe RN colestipol hydrochloride 1000 mg oral tablet (9 sources) Bile Acid Sequestrant Start: 03-30-2012 End: 06-10-2013 take 1 tablet by mouth twice daily COLESTID 1 GM TABS One tablet by mouth twice daily COLESTIPOL HCL [id number] Ronn Jacob MD Start: 01-07-2011 [facility] tablet [facility] daily COLESTID 1 GM TABS One tablet by mouth daily COLESTIPOL HCL [id number] Stevie Sanchez MD dextroamphetamine sulfate 10 mg oral tablet (6 sources) Central Nervous System Stimulant Start: 01-07-2011 End: 03-03-2013 take 2 tablets by mouth once daily DEXTROAMPHETAMINE SULFATE 10 MG TABS Two tablets by mouth daily DEXTROAMPHETAMINE SULFATE [id number] Ronn Jacob MD dicyclomine hydrochloride 10 mg oral capsule (9 sources) Anticholinergic Start: 11-28-2011 End: 03-03-2013 take 1 tablet by mouth twice daily DICYCLOMINE HCL 10 MG CAPS One tablet by mouth twice a day DICYCLOMINE HCL [id number] Stevie Sanchez MD Start: 11-28-2011 take 1 tablet by dawit th once daily DICYCLOMINE HCL 10 MG CAPS One tablet by mouth daily CHRISTINEYCLOMINE HCL [id number] Stevie Sanchez MD fenofibrate 160 mg oral tablet (9 sources) Peroxisome Proliferator Receptor alpha Agonist Start: 11-28-2011 End: 06-10-2013 take 1 tablet by mouth once daily FENOFIBRATE 160 MG TABS One tablet by mouth daily FENOFIBRATE [id number] Laila Davidson RN Start: 01-07-2011 take 1 tablet by dawit th once daily TRICOR 145 MG TABS One tablet by mouth daily FENOFIBRATE [id number] Gayle Medina hydroCHLOROthiazide 25 mg oral tablet (3 sources) Thiazide Diuretic Start: 04-05-2014 take 1 tablet by mouth once daily HYDROCHLOROTHIAZIDE 25 MG TABS One tablet by mouth daily HYDROCHLOROTHIAZIDE [id number] Ronn Jacob MD ibuprofen 200 mg oral tablet (6 sources) Nonsteroidal Anti-inflammator y Drug Start: 01-07-2011 End: 09-12-2014 IBUPROFEN 200 MG TABS PRN IBUPROFEN [id number] Gayle Medina isosorbide dinitrate 5 mg oral tablet (6 sources) Nitrate Vasodilator Start: 09-20-2015 End: 12-23-2016 take 1 tablet by mouth once daily, then take 1 tablet by mouth ISOSORBIDE DINITRATE 5 MG TABS One tablet by mouth daily ISOSORBIDE DINITRATE [id number] Ronn Jacob MD lansoprazole 30 mg extended release oral tablet (6 sources) Proton Pump Inhibitor Start: 09-12-2014 End: 12-23-2016 take 1 tablet by mouth once daily LANSOPRAZOLE 30 MG TBDP One tablet by mouth daily LANSOPRAZOLE Ronn Jacob MD lisinopril 20 mg oral tablet (9 sources) Angiotensin Converting Enzyme Inhibitor Start: 01-07-2011 End: 03-14-2015 take 1 tablet by mouth twice daily PRINIVIL 20 MG TABS One tablet by mouth twice daily LISINOPRIL [id number] Prosper Del Toro MD losartan potassium 25 mg oral tablet (6 sources) Angiotensin 2 Receptor Elyssa Start: 09-12-2014 take 1 tablet by mouth twice daily COZAAR 25 MG TABS One tablet by mouth twice daily LOSARTAN POTASSIUM [id number] Ronn Jacob MD Start: 09-12-2014 take 1 tablet by dawit th twice daily COZAAR 50 MG TABS One tablet by mouth twice daily LOSARTAN POTASSIUM [id number] Ronn Jacob MD meloxicam 15 mg oral tablet (3 sources) Nonsteroidal Anti-inflammatory Drug Start: 09-20-2013 take 1 tablet by mouth once daily MELOXICAM 15 MG TABS One tablet by mouth daily MELOXICAM [id number] Ronn Jacob MD MULTIPLE VITAMINS-MINERAL S (3 sources) Start: 01-07-2011 take 1 tablet by mouth once daily CENTRUM SILVER TABS One tablet by mouth daily MULTIPLE VITAMINS-MINERALS 53572376291 Gayle Medina niacin 500 mg oral tablet (15 sources) Nicotinic Acid Start: 03-03-2013 End: 06-10-2013 take 2 tablets by mouth twice daily NIACIN 500 MG TABS Two tablets by mouth twice daily NIACIN [id number] Laila Davidson RN Start: 05-18-2012 take 1 tablet by dawit th once daily NIACIN 500 MG TABS (ER) One tablet by mouth daily NIACIN [id number] Stevie Sanchez MD Start: 11-28-2011 take 1 tablet by dawit th once daily NIACIN ER 1000 MG CR-TABS (ER) One tablet by mouth daily NIACIN [id number] Stevie Sanchez MD Start: 01-07-2011 take 1 tablet by dawit th twice daily NIACIN 500 MG TABS One tablet by mouth twice daily NIACIN [id number] Gayle Medina nitroglycerin 0.4 mg sublingual tablet (6 sources) Nitrate Vasodilator Start: 01-07-2011 NITROSTAT 0.4 MG SUBL 1 tablet under tongue every 5 min up to 3 X NITROGLYCERIN [id number] Ronn Jacob MD omeprazole 40 mg delayed release oral capsule (9 sources) Proton Pump Inhibitor Start: 12-23-2016 OMEPRAZOLE 40 MG CPD R OMEPRAZOLE [id number] Ronn Jacob MD Start: 11-28-2011 End: 08-25-2012 take 1 tablet by mouth once daily PRILOSEC 20 MG CPDR One tablet by mouth daily OMEPRAZOLE [id number] Stevie Sanchez MD pravastatin sodium 80 mg oral tablet (4 sources) HMG-CoA Reductase Inhibitor Start: 01-07-2011 take 1 tablet by mouth once daily PRAVACHOL 80 MG TABS One tablet by mouth daily PRAVASTATIN SODIUM [id number] Suzette Limon PA-C Start: 01-07-2011 take 1 tablet by dawit th at bedtime PRAVASTATIN SODIUM 40 MG TABS One tablet by mouth at bedtime. PRAVASTATIN SODIUM [id number] Suzette Limon PA-C promethazine hydrochloride 12.5 mg oral tablet (6 sources) Phenothiazine Start: 03-18-2016 End: 12-23-2016 PROMETHAZINE HCL 12.5 MG TABS as needed PROMETHAZINE HCL [id number] Ronn Jacob MD raNITIdine 150 mg oral tablet (6 sources) Histamine-2 Receptor Antagonist Start: 03-03-2013 End: 09-12-2014 take 1 tablet by mouth twice daily RANITIDINE HCL 150 MG TABS One tablet by mouth twice daily RANITIDINE HCL [id number] Ronn Jacob MD saw palmetto extract 160 mg oral tablet (9 sources) Start: 03-03-2013 take 1 tablet by mouth twice daily SAW PALMETTO 160 MG TABS One tablet by mouth twice daily SAW PALMETTO (SERENOA REPENS) [id number] Ronn Jacob MD Start: 03-03-2013 take 6 tablets by mo uth once daily SAW PALMETTO 80 MG CAPS 6 tablets by mouth daily SAW PALMETTO (SERENOA REPENS) [id number] Ronn Jacob MD Start: 01-07-2011 take 1 tablet by dawit th once daily SAW PALMETTO 1000 MG CAPS One tablet by mouth daily SAW PALMETTO (SERENOA REPENS) [id number] Gayle Medina SELENIUM (3 sources) Start: 09-12-2014 take 1 tablet by mouth once daily SELENIUM ER 200 MCG CR-TABS One half tablet by mouth daily SELENIUM [id number] Ronn Jacob MD SELENIUM (3 sources) Start: 09-12-2014 take 2 tablets by mouth once daily SELENIUM 50 MCG TABS Two tablets by mouth daily SELENIUM [id number] Ronn Jacob MD levothyroxine sodium 0.112 mg oral tablet (6 sources) l-Thyroxi ne Start: 01-07-2011 take 1 tablet by mouth once daily LEVOXYL 112 MCG TABS One tablet by mouth daily LEVOTHYROXINE SODIUM [id number] Gayle Medina Start: 01-07-2011 take 1 tablet by dawit th once daily LEVOTHYROXINE SODIUM 125 MCG TABS One tablet by mouth daily LEVOTHYROXINE SODIUM [id number] Suzette Limon PA-C Problems Active Problems Problem Classification Problem Date Documented Date Episodic/Chronic Cardiac dysrhythmias (3 sources) Sinus bradycardia; Translations: [Sinoatrial node dysfunction] Onset: 03-03-2013 03-03-2013 Chronic Complication of device; implant or graft (9 sources) Atherosclerosis of coronary artery bypass graft(s) without angina pectoris; Translations: [Arteriosclerosis of coronary artery bypass graft] Onset: 01-07-2011 Resolved: 03-14-2015 03-14-2015 Chronic Coronary atherosclerosis and other heart disease (3 sources) Coronary arteriosclerosis; Translations: [Atherosclerotic heart disease of [place] coronary artery without angina pectoris] Onset: 01-07-2011 01-07-2011 Chronic Disorders of lipid metabolism (3 sources) Hyperlipidemia; Translations: [Hyperlipidemia, unspecified] Onset: 01-07-2011 01-07-2011 Chronic Essential hypertension (3 sources) Hypertensive disorder; Translations: [Essential (primary) hypertension] Onset: 01-07-2011 01-07-2011 Chronic Unclassified (3 sources) Long-term drug therapy; Translations: [Other snf (current) drug therapy] Onset: 01-07-2011 01-07-2011 Past or Other Problems Problem Classification Problem Date Documented Da te Episodic/Chronic Coronary atherosclerosis and other heart disease (3 sources) Presence of aortocoronary bypass graft; Translations: [Presence of aortocoronary bypass graft] Onset: 01-07-2011 01-07-2011 Episodic Malaise and fatigue (3 sources) Fatigue; Translations: [Other fatigue] Onset: 03-14-2015 03-14-2015 Episodic Other gastrointestinal disorders (3 sources) Heartburn; Translations: [Heartburn] Onset: 03-14-2015 03-14-2015 Episodic Other lower respiratory disease (3 sources) Cough; Translations: [Cough] Onset: 09-12-2014 09-12-2014 Episodic Unclassified (13 sources) Body mass index (BMI) 26.0-26.9, adult; Translations: [Body mass index (BMI) 27.0-27.9, adult] Onset: 09-20-2013 Resolved: 09-20-2015 06-25-2017 Episodic Results Test Name Value Interpretation Reference Range Facility Office Visit: [facility] 06-25-20 Documentation of current medications (procedure) Done Invalid Interpretation Code [employer] Work Phone: Fall risk assessment No Invalid Interpretation Code [employer] Work Phone: Lab Report: Lipid Profileon 06-23-2017 Cholesterol 83 mg/dL Invalid Interpretation Code 200 [employer] Work Phone: HDL Cholesterol 28 mg/dL Low [facility] Work Phone: [phone] LDL Cholesterol 22 mg/dL Invalid Interpretation Code 0-130 [facility] Work Phone: [phone] Triglyceride 166 mg/dL Invalid Interpretation Code [facility] Work Phone: [phone] very low density lipoproteins 33 mg/dL Invalid Interpretation Code 5-40 [facility] Work Phone: [phone] Lab Report: Liver Profileon 06-23-2017 Alanine aminotransferase (ALT) 34 U/L Invalid Interpretation Code 12-78 [facility] Work Phone: [phone] Albumin 3.4 g/dL Invalid Interpretation Code 3.4-5.0 [facility] Work Phone: [phone] Alkaline phosphatase (ALP) 82 U/L Invalid Interpretation Code 45-117 [facility] Work Phone: [phone] Aspartate aminotransferase (AST) 25 U/L Invalid Interpretation Code 15-37 [facility] Work Phone: [phone] Bilirubin (direct) 0.14 mg/dL Invalid Interpretation Code 0.00-0.30 [facility] Work Phone: [phone] Bilirubin (total) 0.60 mg/dL Invalid Interpretation Code 0.20-1.00 [employer] Work Phone: [phone] Globulin 4.0 g/dL Invalid Interpretation Code 2.2-4.2 [facility] Work Phone: [phone] Protein 7.4 g/dL Invalid Interpretation Code 6.4-8.2 [facility] Work Phone: [phone] Office Visiton 12-23-2016 Fall risk assessment No Invalid Interpretation Code [facility] Work Phone: [phone] Clinical Lists Update: Prelo ophthalmologist retina specialist 12-20-2016 Left ventricular Ejection fraction 55 % Invalid Interpretation Code [facility] Work Phone: [phone] Lab Report: Comprehensive Ar tabolic Profilon 09-09-2016 Albumin/Globulin Ratio 1 {ratio} Invalid Interpretation Code 0.9-2.4 [facility] Work Phone: [phone] Anion gap 8 mmol/L Invalid Interpretation Code 5-15 [facility] Work Phone: [phone] BUN/Creatinine Ratio 14.6 RATIO Invalid Interpretation Code 10-20 [employer] Work Phone: [phone] Calcium 9.4 mg/dL Invalid Interpretation Code 8.5-10.1 [employer] Work Phone: [phone] Chloride 102 mmol/L Invalid Interpretation Code 98-107 [employer] Work Phone: [phone] CO2 25.0 mmol/L Invalid Interpretation Code 21.0-32.0 [employer] Work Phone: [phone] Creatinine 0.96 mg/dL Invalid Interpretation Code 0.70-1.30 [employer] Work Phone: [phone] eGFR (non-black) 81 mL/min/{1.73_m2} Invalid Interpretation Code >60 [employer] Work Phone: [phone] eGFR (non-black) 98 mL/min/{1.73_m2} Invalid Interpretation Code >60 [employer] Work Phone: [phone] Glucose mass conc 93 mg/dL Invalid Interpretation Code 70-110 [employer] Work Phone: [phone] Potassium molar conc 3.9 mmol/L Invalid Interpretation Code 3.5-5.1 [employer] Work Phone: [phone] Sodium 135 mmol/L Low 136-145 [employer] Work Phone: [phone] Urea nitrogen 14 mg/dL Invalid Interpretation Code 7-18 [employer] Work Phone: [phone] Lab Report: Prealbuminon Prealbumin 30.9 mg/dL Invalid Interpretation Code 20.0-40.0 [employer] Work Phone: [phone] Lab Report: Thyroid Stim Hor vijay (TSH)on 09-09-2016 Thyroid stimulating hormone (TSH) 2.23 u[iU]/mL Invalid Interpretation Code 0.358-3.74 [employer] Work Phone: [phone] Office Visit: [facility] 03-18-20 16 Dietary management education, guidance, and counseling (procedure) yes Invalid Interpretation Code [employer] Work Phone: [phone] Documentation of current medications (procedure) Done Invalid Interpretation Code [employer] Work Phone: [phone] Office Visiton 09-20-2015 Tobacco use [facility] Never smoker Invalid Interpretation Code [employer] Phone: [phone] Lab Report: CBC W/Diff, Auto matedon 03-14-2015 Absolute Neut 7.2 X10 3/UL Invalid Interpretation Code 2.0-7.7 [employer]: [phone] Basophils/100 WBC Auto (Bld) 0.3 % Invalid Interpretation Code 0-1 [employer] Work Phone: [phone] Eosinophils/100 leukocytes 1.8 % Invalid Interpretation Code 0-5 [employer] Phone: [phone] Erythrocyte distribution width Auto Ratio (RBC) 13.3 % Invalid Interpretation Code 11.6-14.6 [employer] Phone: [phone] Erythrocytes (RBC) 5.38 10*6/uL Invalid Interpretation Code 4.6-6.2 [employer] Phone: [phone] Hematocrit (HCT) 50.5 % Invalid Interpretation Code 40-54 [employer] Phone: [phone] Hemoglobin mass conc (Bld) 17.2 g/dL High 13.0-16.5 [employer] Phone: [phone] Immature granulocytes/100 WBC (Bld) 0.500 % Invalid Interpretation Code 0.0-0.9 [employer] Phone: [phone] Lymphocytes 2.81 X10 3/UL Invalid Interpretation Code 0.83-4.51 [employer] Work Phone: [phone] Lymphocytes/100 leukocytes 25.5 % Invalid Interpretation Code 19-41 [employer] Phone: [phone] MCH 32.0 pg Invalid Interpretation Code 27.0-32.0 [employer] Phone: [phone] MCHC mass conc (RBC) 34.1 G/GL Invalid Interpretation Code 32-36 [employer] Phone: [phone] MCV 93.9 fL Invalid Interpretation Code 80-94 [employer] Work Phone: [phone] Monocytes/100 leukocytes 7.2 % Invalid Interpretation Code 0-10 [employer] Work Phone: [phone] Neutrophils/100 WBC Auto (Bld) 64.7 % Invalid Interpretation Code 47-70 [employer] Work Phone: [phone] Platelets 221 10*3/mm3 Invalid Interpretation Code 150-450 [employer] Phone: [phone] PMV by Ed-Kari 10.2 fL Invalid Interpretation Code 6.2-12.0 [employer] Work Phone: [phone] RDW SD 45.5 fL High 35.1-43.9 [employer] Work Phone: [phone] WBC (Leukocytes) 11.0 10*3/uL Invalid Interpretation Code 4.4-11.0 [employer] Phone: [phone] Office Visiton 09-12-2014 cardiac risk group C Invalid Interpretation Code [employer] Phone: [phone] General cardiovascular disease 10Y risk [#] Palmer.Susana'Agostdioni N/A Invalid Interpretation Code [employer] Phone: [phone] Lab Report: LIVER 04-21-20 14 ALK 76 U/L Normal 45-117 [employer] Phone: [phone] Replaced Document: Tuan ALONZO Observationson 04-05-2014 EKG QRS axis 2 deg Invalid Interpretation Code [employer] Phone: [phone] Interpretation Marked sinus Bradycardia -RSR(V1) -nondiagnostic . -Inferior infarct -probably not recent . ABNORMAL Invalid Interpretation Code [employer] Phone: [phone] P [place] 45 deg Invalid Interpretation Code [employer] Phone: [phone] [place] Interval 188 ms Invalid Interpretation Code [employer] Phone: [phone] Pulse (Heart Rate) 48 /min Invalid Interpretation Code [employer] Work Phone: [phone] Pulse (Heart Rate) 354 ms Invalid Interpretation Code [employer] Phone: [phone] QRS Duration 102 ms Invalid Interpretation Code [employer] Phone: [phone] QT Interval new path ms Invalid Interpretation Code [facility] Work Phone: [phone] T [place] 1 deg Invalid Interpretation Code [facility] Work Phone: [phone] Lab Report: MIACRE - copyon 07-21-2013 Urine, creatinine 204.0 mg/dL Normal NO RANGE EST. [facility] Work Phone: [phone] Clinical Lists Update: Prelo ophthalmologist retina specialist 05-20-2012 Thyroxine (T4) 10.1 ug/dL Invalid Interpretation Code [facility] Work Phone: [phone] Lab Report: MGon 05-20-2012 Magnesium 1.8 mg/dL Normal 1.8-2.4 [facility] Work Phone: [phone] Office Visiton 11-28-2011 Alcoholism counseling (procedure) no Invalid Interpretation Code [facility] Work Phone: [phone] Lab Report: PSAon 11-20-2011 PSA 0.5 ng/mL Normal 0.0-4.0 [facility] Work Phone: [phone] Vital Signs Date Time Vital Sign Value Performing Clinician Lalo beckham 06-25-2017 11:25-0500 BMI (Body Mass Index) 26.94 kg/m2 [facility] Work Phone: 06-25-2017 11:25-0500 BP Diastolic 70 mm[Hg] [facility] Work Phone: 06-25-2017 11:25-0500 BP Systolic 110 mm[Hg] [facility] Work Phone: 06-25-2017 11:25-0500 Height 170.18 cm [facility] Work Phone: 06-25-2017 11:25-0500 Pulse (Heart Rate) 68 /min [facility] Work Phone: 06-25-2017 11:25-0500 Respiratory Rate 20 /min [facility] Work Phone: 06-25-2017 11:25-0500 Weight 78.02 kg Ines [facility] Work Phone: 12-23-2016 13:07-0400 BMI (Body Mass Index) 26.03 kg/m2 Suzette Limon PA-C [facility] Work Phone: 12-23-2016 13:07-0400 BP Diastolic 76 mm[Hg] Suzette Limon PA-C [facility] Work Phone: 12-23-2016 13:07-0400 BP Systolic 124 mm[Hg] Suzette Limon PA-C [facility] Work Phone: 12-23-2016 13:07-0400 Height 170.18 cm Suzette Limon PA-C [facility] Work Phone: 12-23-2016 13:07-0400 Pulse (Heart Rate) 64 /min Suzette Limon PA-C [facility] Work Phone: 12-23-2016 13:07-0400 Respiratory Rate 18 /min Suzette Limon PA-C [facility] Work Phone: 12-23-2016 13:07-0400 Weight 75.39 kg GAURAV [facility] Work Phone: 03-18-2016 13:18-0400 BSA (Body Surface Area) 1.92 m2 Suzette Limon PA-C [facility] Work Phone: Procedures Date Procedure Procedure Detail Performing Clinician Start: 06-25-2017 End: 06-25-2017 Follow Up Appt 6 months Suzette montes PA-C Work Phone: Start: 06-25-2017 End: 06-25-2017 PFM Suzette Limon PA-C Work Phone: Start: 03-14-2017 End: 06-24-2017 *Hepatic Function Panel Ronn Jacob MD Start: 03-14-2017 End: 06-24-2017 Lipid 1996 panel - Serum or Plasma Ronn Jacob MD Start: 12-23-2016 End: 06-05-2017 Follow Up Appt 6 months Ronn Jacob MD Start: 12-23-2016 End: 06-05-2017 Follow Up Appt Other Ronn Jacob MD Start: 12-23-2016 End: 06-05-2017 MMM Ronn Jacob MD Start: 09-04-2016 End: 09-12-2016 *Hepatic Function Panel Ronn Jacob MD Start: 09-04-2016 End: 09-12-2016 Lipid 1996 panel - Serum or Plasma Ronn Jacob MD Start: 03-18-2016 End: 03-18-2016 Follow Up Appt 6 months Suzette montes PA-C Work Phone: Start: 03-18-2016 End: 03-18-2016 PFM Suzette Limon PA-C Work Phone: Start: 03-04-2016 End: 03-13-2016 *Hepatic Function Panel Ronn Jacob MD Start: 03-04-2016 End: 03-13-2016 Lipid 1996 panel - Serum or Plasma Ronn Jacob MD Start: 11-01-2015 End: 11-01-2015 Follow Up BP Check Ronn Jacob MD Start: 09-20-2015 End: 03-06-2016 *Hepatic Function Panel Ronn Jacob MD Start: 09-20-2015 End: 09-20-2015 Follow Up Appt 6 months Ronn Jacob MD Start: 09-20-2015 End: 09-20-2015 Follow Up Appt Other Ronn Jacob MD Start: 09-20-2015 End: 03-06-2016 Lipid 1996 panel - Serum or Plasma Ronn Jacob MD Start: 09-20-2015 End: 09-20-2015 MMM Ronn Jacob MD Start: 09-14-2015 End: 09-19-2015 *Hepatic Function Panel Ronn Jacob MD Start: 09-14-2015 End: 09-19-2015 Lipid 1996 panel - Serum or Plasma Ronn Jacob MD Start: 03-14-2015 End: 03-14-2015 *CBC with Differential Suzette keenan PA-C Work Phone: Start: 03-14-2015 End: 03-14-2015 *CMP Complete Metabolic Panel Suztete Limon PA-C Work Phone: Start: 03-14-2015 End: 03-14-2015 LEAD CAREGIVER Suzette Limon PA-C Work Phone: Start: 03-14-2015 End: 03-15-2015 Documentation of current medications Suzette Limon PA-C Work Phone: Start: 03-14-2015 End: 03-14-2015 Follow Up Appt 6 months Suzette montes PA-C Work Phone: Start: 03-14-2015 End: 09-14-2015 Lipid 1996 panel - Serum or Plasma Suzette Limon PA-C Work Phone: Start: 03-14-2015 End: 09-14-2015 Nuclear stress test -exercise Suzette Limon PA-C Work Phone: Start: 03-14-2015 End: 03-14-2015 Thyrotropin [Units/volume] in Serum or Plasma Suzette Limon PA-C Work Phone: Start: 09-12-2014 End: 03-01-2015 Chest x-ray Ronn Jacob MD Start: 09-12-2014 End: 09-13-2014 Documentation of current medications Ronn Jacob MD Start: 09-12-2014 End: 03-01-2015 Follow Up Appt 6 months Ronn Jacob MD Start: 09-12-2014 End: 03-01-2015 MMM Ronn Jacob MD Start: 04-21-2014 End: 04-21-2014 *Hepatic Function Panel Ronn Jacob MD Start: 04-21-2014 End: 04-21-2014 Lipid 1996 panel - Serum or Plasma Ronn Jacob MD Start: 04-19-2014 End: 04-21-2014 *BMP Suzette Limon PA-C Work Phone: Start: 04-05-2014 End: 04-05-2014 Ecg routine ecg w/least 12 lds w/i&r Suzette Limon PA-C Work Phone: Start: 04-05-2014 End: 04-05-2014 Follow Up Appt Other Suzette chavez PA-C Work Phone: Start: 09-20-2013 End: 01-12-2014 *Hepatic Function Panel Ronn Jacob MD Start: 09-20-2013 End: 09-20-2013 Follow Up Appt 6 months Ronn Jacob MD Start: 09-20-2013 End: 01-12-2014 Lipid 1996 panel - Serum or Plasma Ronn Jacob MD Start: 09-20-2013 End: 09-20-2013 MMM Ronn Jacob MD Start: 07-21-2013 End: 07-21-2013 *Hepatic Function Panel Ronn Jacob MD Start: 07-04-2013 End: 07-26-2013 *Hepatic Function Panel Ronn Jacob MD Start: 07-04-2013 End: 07-26-2013 Lipid 1996 panel - Serum or Plasma Ronn Jacob MD Start: 06-10-2013 End: 07-21-2013 Lipid 1996 panel - Serum or Plasma Ronn Jacob MD Start: 04-12-2013 End: 04-12-2013 Ecg routine ecg w/least 12 lds w/i&r Ronn Jacob MD Start: 03-03-2013 End: 04-05-2014 24 hour holter monitor Ronn Jacob MD Start: 03-03-2013 End: 03-03-2013 Ecg routine ecg w/least 12 lds w/i&r Ronn Jacob MD Start: 03-03-2013 End: 03-03-2013 Follow Up Appt 6 months Ronn Jacob MD Start: 03-03-2013 End: 03-03-2013 PFM Ronn Jacob MD Start: 02-22-2013 End: 02-22-2013 *Hepatic Function Panel Stevie Sanchez MD Start: 02-22-2013 End: 02-22-2013 Lipid 1996 panel - Serum or Plasma Stevie Sanchez MD Start: 08-25-2012 End: 10-06-2012 *Hepatic Function Panel Stevie Sanchez MD Start: 08-25-2012 End: 08-25-2012 Follow Up Appt 6 months Stevie Sanchez MD Start: 08-25-2012 End: 10-06-2012 Lipid 1996 panel - Serum or Plasma Stevie Sanchez MD Start: 08-04-2012 End: 08-25-2012 *Hepatic Function Panel Stevie Sanchez MD Start: 08-04-2012 End: 08-25-2012 Lipid 1996 panel - Serum or Plasma Stevie Sanchez MD Start: 05-18-2012 End: 08-13-2012 *BMP Stevie Sanchez MD Start: 05-18-2012 End: 08-13-2012 *CBC with Differential Stevie Sanchez MD Start: 05-18-2012 End: 05-21-2012 Echocardiography Stevie Sanchez MD Start: 05-18-2012 End: 05-18-2012 Follow Up Appt 3 months Stevie Sanchez MD Start: 05-18-2012 End: 08-13-2012 Magnesium [Mass/volume] in Serum or Plasma Stevie Sanchez MD Start: 05-18-2012 End: 05-21-2012 Nuclear stress test -exercise Stevie Sanchez MD Start: 05-18-2012 End: 08-13-2012 Thyrotropin [Units/volume] in Serum or Plasma Stevie Sanchez MD Start: 05-18-2012 End: 08-13-2012 Thyroxine (T4) [Mass/volume] in Serum or Plasma Stevie Sanchez MD Start: 02-05-2012 End: 03-02-2012 *Hepatic Function Panel Stevie Sanchez MD Start: 02-05-2012 End: 03-02-2012 Lipid 1996 panel - Serum or Plasma Stevie Sanchez MD Start: 11-28-2011 End: 11-28-2011 Follow Up Appt 6 months Stevie Sanchez MD Start: 11-21-2011 End: 11-21-2011 *Hepatic Function Panel Stevie Sanchez MD Start: 11-21-2011 End: 11-21-2011 Lipid 1996 panel - Serum or Plasma Stevie Sanchez MD Plan of Treatment Date Care Activity Detail Author Start: 03-30-2018 End: 03-30-2018 Appointment Appointment [facility] Work Phone: Start: 12-22-2017 End: 06-24-2017 *Hepatic Function Panel *Hepatic Function Panel [facility] Work Phone: Start: 12-22-2017 End: 06-24-2017 Lipid panel [AGGREGATE] *Lipid Profile CC PCP [facility] Work Phone: Start: 06-25-2017 End: 06-25-2017 Follow Up Appt 6 months Follow Up Appt 6 months [facility] Work Phone: Start: 06-25-2017 End: 06-25-2017 PFM PFM [facility] Work Phone: Start: 06-25-2017 End: 06-25-2017 Appointment Appointment [facility] Work Phone: Start: 03-14-2017 End: 06-24-2017 *Hepatic Function Panel *Hepatic Function Panel [facility] Work Phone: Start: 03-14-2017 End: 06-24-2017 Lipid panel [AGGREGATE] *Lipid Profile CC PCP [facility] Work Phone: Start: 12-23-2016 End: 06-05-2017 Follow Up Appt 6 months Follow Up Appt 6 months [facility] Work Phone: Start: 12-23-2016 End: 06-05-2017 Follow Up Appt Other Follow Up Appt Other [facility] Work Phone: Start: 12-23-2016 End: 06-05-2017 MMM MMM [facility] Work Phone: Start: 09-04-2016 End: 09-12-2016 *Hepatic Function Panel *Hepatic Function Panel [facility] Work Phone: Start: 09-04-2016 End: 09-12-2016 Lipid panel [AGGREGATE] *Lipid Profile CC PCP [facility] Work Phone: Start: 03-18-2016 End: 03-18-2016 Follow Up Appt 6 months Follow Up Appt 6 months [facility] Work Phone: Start: 03-18-2016 End: 03-18-2016 PFM PFM [facility] Work Phone: Start: 03-04-2016 End: 03-13-2016 *Hepatic Function Panel *Hepatic Function Panel [facility] Work Phone: Start: 03-04-2016 End: 03-13-2016 Lipid panel [AGGREGATE] *Lipid Profile CC PCP [facility] Work Phone: Start: 11-01-2015 End: 11-01-2015 Follow Up BP Check Follow Up BP Check [facility] Work Phone: Start: 09-20-2015 End: 03-06-2016 *Hepatic Function Panel *Hepatic Function Panel [facility] Work Phone: Start: 09-20-2015 End: 09-20-2015 Follow Up Appt 6 months Follow Up Appt 6 months [facility] Work Phone: Start: 09-20-2015 End: 09-20-2015 Follow Up Appt Other Follow Up Appt Other [facility] Work Phone: Start: 09-20-2015 End: 03-06-2016 Lipid panel [AGGREGATE] *Lipid Profile CC PCP [facility] Work Phone: Start: 09-20-2015 End: 09-20-2015 MMM MMM [facility] Work Phone: Start: 09-14-2015 End: 09-19-2015 *Hepatic Function Panel *Hepatic Function Panel [facility] Work Phone: Start: 09-14-2015 End: 09-19-2015 Lipid panel [AGGREGATE] *Lipid Profile CC PCP [facility] Work Phone: Start: 03-14-2015 End: 03-14-2015 *CBC with Differential *CBC with Differential [facility] Work Phone: Start: 03-14-2015 End: 03-14-2015 *CMP Complete Metabolic Panel *CMP Complete Metabolic Panel [facility] Work Phone: Start: 03-14-2015 End: 03-14-2015 LEAD CAREGIVER LEAD CAREGIVER [facility] Work Phone: Start: 03-14-2015 End: 03-14-2015 Follow Up Appt 6 months Follow Up Appt 6 months [facility] Work Phone: Start: 03-14-2015 End: 09-14-2015 Lipid panel [AGGREGATE] *Lipid Profile CC PCP [facility] Work Phone: Start: 03-14-2015 End: 09-14-2015 Nuclear stress test -exercise Nuclear stress test -exercise [facility] Work Phone: Start: 03-14-2015 End: 03-14-2015 Thyroid stimulating hormone (TSH) *TSH [facility] Work Phone: Start: 09-12-2014 End: 03-01-2015 Chest x-ray X-Ray, Chest, PA & Lateral [facility] Work Phone: Start: 09-12-2014 End: 03-01-2015 Follow Up Appt 6 months Follow Up Appt 6 months [facility] Work Phone: Start: 09-12-2014 End: 03-01-2015 MMM MMM [facility] Work Phone: Start: 07-04-2014 End: 04-21-2014 *Hepatic Function Panel *Hepatic Function Panel [facility] Work Phone: Start: 07-04-2014 End: 04-21-2014 Lipid panel [AGGREGATE] *Lipid Profile CC PCP [facility] Work Phone: Start: 04-19-2014 End: 04-21-2014 *BMP *BMP [facility] Work Phone: Start: 04-05-2014 End: 04-05-2014 Ecg routine ecg w/least 12 lds w/i&r EKG (In office) [facility] Work Phone: Start: 04-05-2014 End: 04-05-2014 Follow Up Appt Other Follow Up Appt Other [facility] Work Phone: Start: 09-20-2013 End: 01-12-2014 *Hepatic Function Panel *Hepatic Function Panel [facility] Work Phone: Start: 09-20-2013 End: 09-20-2013 Follow Up Appt 6 months Follow Up Appt 6 months [facility] Work Phone: Start: 09-20-2013 End: 01-12-2014 Lipid panel [AGGREGATE] *Lipid Profile CC PCP [facility] Work Phone: Start: 09-20-2013 End: 09-20-2013 MMM MMM [facility] Work Phone: Start: 07-26-2013 End: 07-21-2013 *Hepatic Function Panel *Hepatic Function Panel [facility] Work Phone: Start: 07-04-2013 End: 07-26-2013 *Hepatic Function Panel *Hepatic Function Panel [facility] Work Phone: Start: 07-04-2013 End: 07-26-2013 Lipid panel [AGGREGATE] *Lipid Profile CC PCP [facility] Work Phone: Start: 06-10-2013 End: 07-21-2013 Lipid panel [AGGREGATE] *Lipid Profile CC PCP [facility] Work Phone: Start: 04-12-2013 End: 04-12-2013 Ecg routine ecg w/least 12 lds w/i&r EKG (In office) [facility] Work Phone: Start: 03-04-2013 End: 02-22-2013 *Hepatic Function Panel *Hepatic Function Panel [facility] Work Phone: Start: 03-04-2013 End: 02-22-2013 Lipid panel [AGGREGATE] *Lipid Profile [facility] Work Phone: Start: 03-03-2013 End: 03-03-2013 24 hour holter monitor 24 hour holter monitor [facility] Work Phone: Start: 03-03-2013 End: 03-03-2013 Ecg routine ecg w/least 12 lds w/i&r EKG (In office) [facility] Work Phone: Start: 03-03-2013 End: 03-03-2013 Follow Up Appt 6 months Follow Up Appt 6 months [facility] Work Phone: Start: 03-03-2013 End: 03-03-2013 PFM PFM [facility] Work Phone: Start: 08-25-2012 End: 10-06-2012 *Hepatic Function Panel *Hepatic Function Panel [facility] Work Phone: Start: 08-25-2012 End: 08-25-2012 Follow Up Appt 6 months Follow Up Appt 6 months [facility] Work Phone: Start: 08-25-2012 End: 10-06-2012 Lipid panel [AGGREGATE] *Lipid Profile [facility] Work Phone: Start: 08-04-2012 End: 08-25-2012 *Hepatic Function Panel *Hepatic Function Panel [facility] Work Phone: Start: 08-04-2012 End: 08-25-2012 Lipid panel [AGGREGATE] *Lipid Profile [facility] Work Phone: Start: 05-18-2012 End: 08-13-2012 *BMP *BMP [facility] Work Phone: Start: 05-18-2012 End: 08-13-2012 *CBC with Differential *CBC with Differential [facility] Work Phone: Start: 05-18-2012 End: 05-18-2012 Echocardiography Echocardiogram (complete) [facility] Work Phone: Start: 05-18-2012 End: 05-18-2012 Follow Up Appt 3 months Follow Up Appt 3 months [facility] Work Phone: Start: 05-18-2012 End: 08-13-2012 Magnesium *Magnesium [facility] Work Phone: Start: 05-18-2012 End: 05-18-2012 Nuclear stress test -exercise Nuclear stress test -exercise [facility] Work Phone: Start: 05-18-2012 End: 08-13-2012 Thyroid stimulating hormone (TSH) *TSH [facility] Work Phone: Start: 05-18-2012 End: 08-13-2012 Thyroxine (T4) *T4 (Total) [facility] Work Phone: Start: 02-05-2012 End: 03-02-2012 *Hepatic Function Panel *Hepatic Function Panel [facility] Work Phone: Start: 02-05-2012 End: 03-02-2012 Lipid panel [AGGREGATE] *Lipid Profile [facility] Work Phone: Start: 01-28-2012 End: 11-21-2011 *Hepatic Function Panel *Hepatic Function Panel [facility] Work Phone: Start: 01-28-2012 End: 11-21-2011 Lipid panel [AGGREGATE] *Lipid Profile [facility] Work Phone: Start: 11-28-2011 End: 11-28-2011 Follow Up Appt 6 months Follow Up Appt 6 months [facility] Work Phone: Patient Education [facility] Work Phone: Additional Source Comments FOR RECORDS PERTAINING TO PATIENTS WHO ARE OR HAVE BEEN ENROLLED IN A CHEMICAL DEPENDENCY/SUBSTANCEABUSE PROGRAM, SOME INFORMATION MAY BE OMITTED. This clinical summary was aggregated from multiple sources. Caution should be exercised in using it in the provision of clinical care. This summary normalizes information from multiple sources, and as a consequence, information in this document may materially change the coding, format and clinical context of patient data. In addition, data may be omitted in some cases. CLINICAL DECISIONS SHOULD BE BASED ON THE PRIMARY CLINICAL RECORDS. [facility]. provides no warranty or guarantee of the accuracy or completeness of information in this document.
[2024-05-25 17:58] LABS: Uric Acid 4.2 mg/dL (3.5-7.2)
== END | disposition home or self-care (01) ==
LOC: MTLAB 13:33
PROVIDERS: PCP Family Medicine; Referring Provider Podiatrist; Visit Provider Podiatrist
DX: M10.071 Idiopathic gout, right ankle and foot (principal)
CPT/HCPCS: 36415; 73630; 84550

== ENCOUNTER → 2024-07-23 | Outpatient (CLI) | payer MEDICARE, SELFPAY ==
[2024-07-23 14:09] LABS: Microalbumin,Random Urine 24.4 mg/L (NO RANGE EST.)
[2024-07-23 14:38] LABS: AST(SGOT) 27 U/L (15-37); Alanine Aminotransfer ALT/SGPT 32 U/L (16-61); Albumin, Serum 3.8 g/dL (3.2-5.0); Alkaline Phosphatase 65 U/L (45-117); Anion Gap 6 (5-15); BUN 13 mg/dL (7-18); BUN/Creat Ratio 14.7 RATIO (10-20); Calcium,Total 9.6 mg/dL (8.5-10.1); Chloride 104 mmol/L (98-107); Creatinine, Serum 0.89 mg/dL (0.70-1.30); EST Glomerular Filtration Rate 87 mL/min (>60); Est Glom Filt Rate - Afr Amer 106 mL/min (>60); Globulin 3.9 g/dL (2.2-4.2); Glucose 98 mg/dL (74-106); Protein, Total 7.7 g/dL (6.4-8.2); Sodium Level 135 mmol/L (136-145)
== END | disposition home or self-care (01) ==
LOC: LAB 13:05
PROVIDERS: PCP Family Medicine; Referring Provider Family Medicine; Visit Provider Family Medicine
DX: I10 Essential (primary) hypertension (principal); E03.9 Hypothyroidism, unspecified
CPT/HCPCS: 36415; 80053; 82043; 82570; 84443

== ENCOUNTER → 2025-03-31 | Outpatient (CLI) | payer MEDICARE, SELFPAY ==
[2025-03-31 12:53] LABS: Hematocrit 43.6 % (40-54); Hemoglobin 15.1 g/dL (13.0-16.5); Immature Granulocytes Count 0.030 X10^3/uL (0.0-0.0); Mean Corp Hgb Conc 34.6 g/dL (32-36); Mean Corpuscular Volume 94.2 fL (80-94); Mean Platelet Vol. 10.2 fl (6.2-12.0); NRBC Flagged by Analyzer 0 % (0-5); Platelet Count 207 K/mm3 (150-450); RBC Distribution Width CV 12.9 % (11.6-14.6); RBC Distribution Width SD 44.0 fl (35.1-43.9); Red Blood Count 4.63 M/mm3 (4.6-6.2); White Blood Count 6.9 K/mm3 (4.4-11.0)
[2025-03-31 13:13] LABS: CRP < 3.00 mg/L (0.0-3.0); Syphilis Antibodies Nonreactive (Nonreactive)
[2025-03-31 13:19] LABS: AST(SGOT) 29 U/L (<=37); Alanine Aminotransfer ALT/SGPT 27 U/L (<=46); Albumin, Serum 4.2 g/dL (3.4-4.8); Alkaline Phosphatase 68 U/L (40-129); Bilirubin, Direct 0.26 mg/dL (0.00-0.30); Cholesterol 126 mg/dL (<=200); Globulin 3.1 g/dL (2.2-4.2); Low Density Lipoprotein Calc. 59 mg/dL; Triglycerides 153 mg/dL; Very Low Density Lipoprotein 31 mg/dL (5-40); cholesterol:hdl ratio screen 3.50
== END | disposition home or self-care (01) ==
PROVIDERS: Internal Medicine Cardiovascular Disease; PCP Family Medicine; Referring Provider Family Medicine; Visit Provider Family Medicine
DX: I25.10 Atherosclerotic heart disease of native coronary artery without angina pectoris (principal); M79.2 Neuralgia and neuritis, unspecified
CPT/HCPCS: 36415; 80061; 80076; 85025; 85652; 86140; 86780

== ENCOUNTER 2025-04-27 08:00 | Outpatient (RCR) | payer MEDICARE, SELFPAY ==
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
== END 2025-04-27 19:00 | disposition home or self-care (01) ==
LOC: PT 08:00
PROVIDERS: PCP Family Medicine; Referring Provider Family Medicine; Visit Provider Family Medicine
DX: M54.2 Cervicalgia (principal)
CPT/HCPCS: 97035; 97110; 97140; 97162; 97530

== ENCOUNTER → 2025-07-29 | Outpatient (CLI) | payer MEDICARE, SELFPAY ==
--- OUTSIDE RECORDS SUMMARY | 2025-07-29 09:36 | XMS RPT_ITS | CCD ---
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 Info: 183-08 - CBCD Order Info: [id number] - SED Performed By: #### L 501.6710, L100.0100, L101.9900 #### [facility] [address] [place], [address] Hemoglobin (Bld) [Mass/Vol] 15.1 g/dL Normal 13.0-16.5 [facility] Comment on above: Order Comment: Order Date: 03/31/25 Order Info: 183-08 - CBCD Order Info: [id number] - SED Performed By: #### L 501.6710, L100.0100, L101.9900 #### [facility] [address] [place], [address] IG% 0.400 Normal 0.0-0.9 [facility] Comment on above: Order Comment: Order Date: 03/31/25 Order Info: 183- - CBCD Order Info: [id number] - SED Result Comment: IG% - Immature Granulocytes (promyelocytes, myelocytes and metamyelocytes) > 1% indicates that a LEFT SHIFT is Present. Performed By: #### L 501.6710, L100.0100, L101.9900 #### [facility] [address] [place], [address] Lymphocytes/100 WBC (Bld) 24.7 % Normal 19-41 [facility] Comment on above: Order Comment: Order Date: 03/31/25 Order Info: 183-08 - CBCD Order Info: [id number] - SED Performed By: #### L 501.6710, L100.0100, L101.9900 #### [facility] [address] [place], [address] MCH (RBC) [Entitic mass] 32.6 pg High 27.0-32.0 [facility] Comment on above: Order Comment: Order Date: 03/31/25 Order Info: 183-08 - CBCD Order Info: [id number] - SED Performed By: #### L 501.6710, L100.0100, L101.9900 #### [facility] [address] [place], [address] MCHC (RBC) [Mass/Vol] 34.6 g/dL Normal 32-36 [facility] Comment on above: Order Comment: Order Date: 03/31/25 Order Info: 183-08 - CBCD Order Info: [id number] - SED Performed By: #### L 501.6710, L100.0100, L101.9900 #### [facility] [address] [place], [address] MCV (RBC) [Entitic vol] 94.2 fL High 80-94 [facility] Comment on above: Order Comment: Order Date: 03/31/25 Order Info: 183-08 - CBCD Order Info: [id number] - SED Performed By: #### L 501.6710, L100.0100, L101.9900 #### [facility] [address] [place], [address] Monocytes/100 WBC (Bld) 8.3 % Normal 0-10 [facility] Comment on above: Order Comment: Order Date: 03/31/25 Order Info: 018-1 - CBCD Order Info: [id number] - SED Performed By: #### L 501.6710, L100.0100, L101.9900 #### [facility] [address] [place], [address] Neutrophils/100 WBC (Bld) 62.8 % Normal 47-70 [facility] Comment on above: Order Comment: Order Date: 03/31/25 Order Info: 018- - CBCD Order Info: 11415-1 - SED Performed By: #### L 501.6710, L100.0100, L101.9900 #### [facility] [address] [place], [address] Nucleated RBC (Bld) [#/Vol] 0 10*3/uL Normal 0-5 [facility] Comment on above: Order Comment: Order Date: 03/31/25 Order Info: 018- - CBCD Order Info: [id number] - SED Performed By: #### L 501.6710, L100.0100, L101.9900 #### [facility] [address] [place], [address] Platelet mean volume (Bld) [Entitic vol] 10.2 fL Normal 6.2-12.0 [facility] Comment on above: Order Comment: Order Date: 03/31/25 Order Info: 018-1 - CBCD Order Info: [id number] - SED Performed By: #### L 501.6710, L100.0100, L101.9900 #### [facility] [address] [place], [address] Platelets (Bld) [#/Vol] 207 10*3/uL Normal 150-450 [facility] Comment on above: Order Comment: Order Date: 03/31/25 Order Info: 0184-1 - CBCD Order Info: [id number] - SED Performed By: #### L 501.6710, L100.0100, L101.9900 #### [facility] [address] [place], [address] RBC (Bld) [#/Vol] 4.63 10*6/uL Normal 4.6-6.2 [facility] Comment on above: Order Comment: Order Date: 03/31/25 Order Info: 183-08 - CBCD Order Info: [id number] - SED Performed By: #### L 501.6710, L100.0100, L101.9900 #### [facility] [address] [place], [address] RDW SD 44.0 fl High 35.1-43.9 [facility] Comment on above: Order Comment: Order Date: 03/31/25 Order Info: 183-08 - CBCD Order Info: [id number] - SED Performed By: #### L 501.6710, L100.0100, L101.9900 #### [facility] [address] [place], [address] WBC (Bld) [#/Vol] 6.9 10*3/uL Normal 4.4-11.0 [facility] Comment on above: Order Comment: Order Date: 03/31/25 Order Info: 183-08 - CBCD Order Info: [id number] - SED Performed By: #### L 501.6710, L100.0100, L101.9900 #### [facility] [address] [place], [address] CRPon 03-31-2025 C-REACTIVE PROT < 3.00 Normal 0.0-3.0 [facility] Comment on above: Order Comment: Order Date: 03/31/25 Order Info: [id number] - CRP Performed By: #### L 501.6710, L100.0100, L101.9900 #### [facility] [address] [place], [place], [address] Calculated very low density lipoprotein (VLDL) cholesterol measurementOrdered By: Arsh Jimenez on 03-31-2025 Calculated very low density lipoprotein (VLDL) cholesterol measurement 31 mg/dL 5-40 [facility] Eosinophil percentageOrdered By: Robert Mireles on 03-31-2025 Eosinophils/100 WBC (Bld) 3.1 % 0-5 [facility] Erythrocyte Sed Rateon 03-31 SED RATE 10 mm/hr Normal 0-20 [facility] Comment on above: Order Comment: Order Date: 03/31/25 Order Info: 0184-1 - CBCD Order Info: [id number] - SED Performed By: #### L 501.6710, L100.0100, L101.9900 #### [facility] [address] [place], [place], [address] Erythrocyte distribution wid th ratioOrdered By: Robert Mireles on 03-31-2025 Erythrocyte distribution width (RBC) [Ratio] 12.9 % 11.6-14.6 [facility] Erythrocyte distribution wid th standard deviationOrdered By: Robert Mireles on 03-31-2025 Erythrocyte distribution width (RBC) [Ratio] 44.0 fl High 35.1-43.9 [facility] Erythrocyte sedimentation ra teOrdered By: Robert Mireles on 03-31-2025 ESR (Bld) [Velocity] 10 mm/h 0-20 [facility] Hematocrit Auto (Bld) [Volum e fraction]Ordered By: Robert Mireles on 03-31-2025 Hematocrit (Bld) [Volume fraction] 43.6 % 40-54 [facility] Hemoglobin measurementOrdere d By: Robert Mireles on 03-31-2025 Hemoglobin (Bld) [Mass/Vol] 15.1 g/dL 13.0-16.5 [facility] Immature granulocytes/100 WB C Auto (Bld)Ordered By: Robert Mireles on 03-31-2025 Immature granulocytes/100 WBC (Bld) 0.400 % 0.0-0.9 [facility] Comment on above: IG% - Immature Granu locytes (promyelocytes, myelocytes and metamyelocytes) > 1% indicates that a LEFT SHIFT is Present. LDL calc ser/plasOrdered By: Arsh Jimenez on 03-31-2025 Cholesterol in LDL [Mass/Vol] 59 mg/dL [facility] Comment on above: Hpwpsgfnys=526-500 m g/dL & Higher Xctc=199 mg/dL or greaterFriedwald Equation for LDL-C Laboratory - Chemistry and C hemistry - challengeOrdered By: Arsh Jimenez on 03-31-2025 AST [Catalytic activity/Vol] 29 U/L <38 [facility] Lipid Profileon 03-31-2025 CHOL:HDL 3.50 Normal [facility] Comment on above: Performed By: #### L 500.3400, L500.4100 ####[facility] [address] [place], [address] Cholesterol [Mass/Vol] 126 mg/dL Normal <=200 [facility] Comment on above: Result Comment: Chol esterol level, Desirable <200 mg/dL Borderline high cholesterol 200-239 mg/dL High cholesterol >=240 mg/dL Recommendations of the NCEP Adult Treatment Panel for the following risk-cutoff thresholds for the [place] population. Performed By: #### L 500.3400, L500.4100 ####[facility] [address], [address] Cholesterol in HDL [Mass/Vol] 36 mg/dL Low [facility] Comment on above: Result Comment: Virgen onal Cholesterol Education Program (NCEP) guidelines: <40 mg/dL: Low HDL-cholesterol (major risk factor for CHD) >= 60 mg/dL: High HDL-cholesterol (negative risk factor for CHD) HDL-cholesterol is affected by a number of factors, e.g. smoking, exercise, hormones, sex and age. Performed By: #### L 500.3400, L500.4100 ####[facility] [address] [place], [address] Cholesterol in LDL [Mass/Vol] 59 mg/dL Normal [facility] Comment on above: Result Comment: Bord effjel=994-458 mg/dL Higher Jmdj=027 mg/dL or greater Friedwald Equation for LDL-C Performed By: #### L 500.3400, L500.4100 ####[facility] [address] [place], [address] Cholesterol in VLDL [Mass/Vol] 31 mg/dL Normal 5-40 [facility] Comment on above: Performed By: #### L 500.3400, L500.4100 ####[facility] [address] [place], [address] Triglyceride [Mass/Vol] 153 mg/dL Normal [facility] Comment on above: Result Comment: The drugs N-Acetylcysteine and Metamizole may falsely depress this assay. Normal range: <150 mg/dL Borderline High: 150-199 mg/dL High: 200-499 mg/dL Very High: >500 mg/dL Performed By: #### L 500.3400, L500.4100 ####[facility] [address] [place], [address] Liver Profileon 03-31-2025 Albumin [Mass/Vol] 4.2 g/dL Normal 3.4-4.8 [facility] Comment on above: Performed By: #### L 500.3400, L500.4100 ####[facility] [address] [place], [address] ALK PHOS 68 U/L Normal 40-129 [facility] Comment on above: Performed By: #### L 500.3400, L500.4100 ####[facility] [address] [place], [address] ALT [Catalytic activity/Vol] 27 U/L Normal <=46 [facility] Comment on above: Performed By: #### L 500.3400, L500.4100 ####[facility] [address] [place], [address] AST [Catalytic activity/Vol] 29 U/L Normal <=37 [facility] Comment on above: Performed By: #### L 500.3400, L500.4100 ####[facility] [address] [place], [address] Bilirubin [Mass/Vol] 0.60 mg/dL Normal 0.00-1.30 [facility] Comment on above: Performed By: #### L 500.3400, L500.4100 ####[facility] [address] [place], [address] Bilirubin.direct [Mass/Vol] 0.26 mg/dL Normal 0.00-0.30 [facility] Comment on above: Performed By: #### L 500.3400, L500.4100 ####[facility] [address] [place], [address] Globulin (S) [Mass/Vol] 3.1 g/dL Normal 2.2-4.2 [facility] Comment on above: Performed By: #### L 500.3400, L500.4100 ####[facility] [address] [place], [address] T PROT 7.2 g/dL Normal 5.9-8.4 [facility] Comment on above: Performed By: #### L 500.3400, L500.4100 ####[facility] [address] [place], [address] MCV (mean corpuscular volume ) determinationOrdered By: Robert Mireles on 03-31-2025 MCV (RBC) [Entitic vol] 94.2 fL High 80-94 [facility] Mean corpuscular hemoglobin (MCH) determinationOrdered By: Robert Mireles on 03-31-2025 MCH (RBC) [Entitic mass] 32.6 pg High 27.0-32.0 [facility] Mean corpuscular hemoglobin concentration (MCHC) determinationOrdered By: Robert Mireles on 03-31-2025 MCHC (RBC) [Mass/Vol] 34.6 g/dL 32-36 [facility] Mean platelet volume determi nationOrdered By: Robert Mireles on 03-31-2025 Platelet mean volume (Bld) [Entitic vol] 10.2 fL 6.2-12.0 [facility] Monocyte percentageOrdered B y: Robert Mireles on 03-31-2025 Monocytes/100 WBC (Bld) 8.3 % 0-10 [facility] Neutrophil percentageOrdered By: Robert Mireles on 03-31-2025 Neutrophils/100 WBC (Bld) 62.8 % 47-70 [facility] Nucleated red blood cell per centageOrdered By: Robert Mireles on 03-31-2025 Nucleated RBC/100 WBC (Bld) [Ratio] 0 % 0-5 [facility] Platelet countOrdered By: Samuel Mireles on 03-31-2025 Platelets (Bld) [#/Vol] 207 10*3/uL 150-450 [facility] RBC Auto (Bld) [#/Vol]Ordere d By: Robert Mireles on 03-31-2025 RBC (Bld) [#/Vol] 4.63 10*6/uL 4.6-6.2 [facility] Screening total cholesterol/ high density lipoprotein (HDL) cholesterol ratioOrdered By: Arsh Jimenez on 03-31-2025 Cholesterol.total/Sue sterol in HDL [Mass ratio] 3.50 {ratio} [facility] Serum globulin measurementOr dered By: Arsh Jimenez on 03-31-2025 Globulin (S) [Mass/Vol] 3.1 g/dL 2.2-4.2 [facility] Serum or plasma C reactive p rotein measurement (mass/volume)Ordered By: Robert Mireles on 03-31-2025 CRP [Mass/Vol] mg/L 0.0-3.0 [facility] Serum or plasma alanine mcmahan otransferase (ALT) measurementOrdered By: Arsh Jimenez on 03-31-2025 ALT [Catalytic activity/Vol] 27 U/L <47 [facility] Serum or plasma albumin basia urement (mass/volume)Ordered By: Arsh Jimenez on 03-31-2025 Albumin [Mass/Vol] 4.2 g/dL 3.4-4.8 [facility] Serum or plasma alkaline [place] sphatase measurementOrdered By: Arsh Jimenez on 03-31-2025 ALP [Catalytic activity/Vol] 68 U/L 40-129 [facility] Serum or plasma cholesterol in HDL measurement (mass/volume)Ordered By: Arsh Jimenez on 03-31-2025 Cholesterol in HDL [Mass/Vol] 36 mg/dL Low >40 [facility] Comment on above: National Cholesterol Education Program (NCEP) guidelines:<40 mg/dL: Low HDL-cholesterol (major risk factor for CHD)>= 60 mg/dL: High HDL-cholesterol (negative risk factor for CHD)HDL-cholesterol is affected by a number of factors, e.g. smoking, exercise, hormones, sex and age. Serum or plasma cholesterol measurement (mass/volume)Ordered By: Arsh Jimenez on 03-31-2025 Cholesterol [Mass/Vol] 126 mg/dL <201 [facility] Comment on above: Cholesterol level, D esirable <200 mg/dLBorderline high cholesterol 200-239 mg/dLHigh cholesterol >=240 mg/dLRecommendations of the NCEP Adult Treatment Panel for the following risk-cutoff thresholds for the [place] population. Syphilis Antibodieson 2024 Syphilis Abs Non-Reactive Normal Nonreactive [facility] Comment on above: Order Comment: Order Date: 03/31/25Order Info: [id number] - CRP Performed By: #### L 509.8002 ####[facility] [address] [place], [address] Total proteinOrdered By: Ramin Jimenez on 03-31-2025 Protein [Mass/Vol] 7.2 g/dL 5.9-8.4 [facility] Triglycerides measurementOrd ered By: Arsh Jimenez on 03-31-2025 Triglyceride [Mass/Vol] 153 mg/dL <199 [facility] Comment on above: The drugs N-Acetylcy steine and Metamizole may falsely depress this assay. Normal range: <150 mg/dLBorderline High: 150-199 mg/dLHigh: 200-499 mg/dLVery High: >500 mg/dL White blood cell (WBC) count Ordered By: Robert Mireles on 03-31-2025 WBC (Bld) [#/Vol] 6.9 10*3/uL 4.4-11.0 [facility] Cardiology Visit Reporton Cardiology Visit Report [facility] [address] [place] [address] OFFICE VISIT Date of Service: 02/02/25 MR#: [id number] Acct: [id number] Name: OSWALDO FLORES Rep #: [id number] : 1940 Provider: Dr. Arsh laurent MD Age/Sex: 84/M Location: [facility] Status: Signed HPI HPI History of Present Illness Details: Patient is a very pleasant 84-year-old white male that comes today for monitoring of his cardiovascular status. Patient has a history of coronary disease status post remote bypass graft surgery in 1996 received a MURCIA to the LAD of vein graft to the diagonal, circumflex, and right coronary arteries at [facility]. The patient's presenting complaint at that time was dyspnea on exertion with a upper chest throat sensation. This occurred when he was walking back and forth to the barn and was reproducible. He has had no recurrence of the symptoms. The patient also carries a longstanding history of bradycardia heart rate in the office today is 54. He denies any syncope near syncope or lightheaded spells. This has been longstanding. He is on no significant rate modulating drugs. Patient also carries a history of hyperlipidemia which has been well-controlled on his current medical therapy and his longstanding history of hypertension since 1954. Blood pressure in office today is 147/75 with a heart rate of 54. From a cardiovascular standpoint the patient is doing well denies any lower extremity edema denies any dyspnea on exertion shortness of breath PND orthopnea. 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 Accompanied by: Self Is patient in pain?: No Allergies No Known Allergies Allergy (Verified 02/02/25 08:18) Medications ???Medication ???Instructions ???Recorded ???Confirmed ???Type aspirin 325 mg tablet 325 mg PO QDAY 12/31/17 02/02/25 H istory coenzyme Q10 100 mg capsule (Co 100 mg PO QDAY 12/31/17 02/02/25 H istory Q-10) levothyroxine 125 mcg tablet 125 mcg PO QDAY 12/31/17 02/02/25 History meloxicam 15 mg tablet 15 mg PO QDAY 12/31/17 02/02/25 Hi story multivitamin 1 tab PO QDAY 12/31/17 02/02/25 Hi story saw palmetto 160 mg capsule 160 mg PO BID 12/31/17 02/02/25 Hi story selenium 100 mcg tablet 100 mcg PO QDAY 12/31/17 02/02/25 History omeprazole 40 mg capsule,delayed 40 mg PO .4XWEEK 01/03/20 02/02/25 History release zinc 50 mg tablet 50 mg PO DAILY 04/27/20 02/02/25 H istory meclizine 25 mg tablet 25 mg PO TID PRN dizziness #20 tab s 06/07/22 02/02/25 Rx amlodipine 5 mg tablet 5 mg PO DAILY #90 tabs 10/06/23 Rx losartan 50 mg tablet (Cozaar) 50 mg PO BID #180 tabs 03/02/24 Rx nitroglycerin 0.4 mg sublingual 0.4 mg sublingual Q5-15M PRN chest 04/16/24 02/02/25 Rx tablet (Nitrostat) pain #25 tabs pravastatin 40 mg tablet 40 mg PO QHS #90 tabs 11/25/2409/28 Rx ascorbic acid (vitamin C) 500 mg 500 mg PO QDAY 02/02/25 02/02/25 H istory capsule Ejection fraction %: 60 Have you fallen in the past year?: No PFSH Medical History GERD (gastroesophageal reflux disease) Narcolepsy Hypothyroidism Sinus bradycardia Hyperlipidemia Hypertension Atherosclerotic heart disease of [place] coronary artery without angina pectoris Surgical History History of gastric surgery ( 2017) History of colon surgery History of knee surgery Hx of appendectomy History of hernia repair History of carpal tunnel surgery History of coronary artery bypass surgery ( 01/30/97) Social History Smoking Status: Never smoker alcohol intake: current details: occasional substance use type: does not use caffeine: Yes Type: coffee Number of servings: 6 ROS Const Const: Negative for fatigue or weakness Eyes Eyes: Negative for change in vision ENT ENT: Negative for dizziness or balance problems Cardio Chest Pain: No Palpitations: No Edema: None Resp Respiratory: Negative for SOB with activity, SOB at rest or SOB orthopnea SOB lying down GI GI: Negative nausea or heartburn Musc Musc: Negative for balance problems Neuro Neuro: Negative for dizziness, lightheadedness, near syncope, syncope or weakness Endo Endo: Negative for fatigue Cardiology Exam Const Appearance: cooperative, comfortable and no acute distress Nutritional Appearance: o (more content not included)... Normal [facility] Comprehensive Metabolic Prof ilon 07-23-2024 Albumin [Mass/Vol] 3.8 g/dL Normal 3.2-5.0 [facility] Comment on above: Order Comment: Order Date: 07/23/24 Order Info: 0786-1 - CMP Order Info: 3016-3 - TSH Performed By: #### L 501.9520, L500.4050, L502.0250 #### [facility] [address] [place], [place], [id number] Albumin/Globulin [Mass ratio] 1.0 {ratio} Normal 0.9-2.4 [facility] Comment on above: Order Comment: Order Date: 07/23/24 Order Info: 0786-1 - CMP Order Info: 3016-3 - TSH Performed By: #### L 501.9520, L500.4050, L502.0250 #### [facility] [address] [place], [address] ALK P 65 U/L Normal 45-117 [facility] Comment on above: Order Comment: Order Date: 07/23/24 Order Info: 0786-1 - CMP Order Info: 3016-3 - TSH Performed By: #### L 501.9520, L500.4050, L502.0250 #### [facility] [address] [place], [address] ALT [Catalytic activity/Vol] 32 U/L Normal 16-61 [facility] Comment on above: Order Comment: Order Date: 07/23/24 Order Info: 0786 - [facility] Order Info: 3015-3 - TSH Performed By: #### L 501.9520, L500.4050, L502.0250 #### [facility] [address] [place], [address] AST [Catalytic activity/Vol] 27 U/L Normal 15-37 [facility] Comment on above: Order Comment: Order Date: 07/23/24 Order Info: 07 - CMP Order Info: 3 - TSH Performed By: #### L 501.9520, L500.4050, L502.0250 #### [facility] [address] [place], [address] Bilirubin [Mass/Vol] 0.80 mg/dL Normal 0.20-1.00 [facility] Comment on above: Order Comment: Order Date: 07/23/24 Order Info: 0786- - CMP Order Info: 3015-3 - TSH Result Comment: For patients on eltrombopag therapy, use of Dimension [place] TBIL is not recommended. Performed By: #### L 501.9520, L500.4050, L502.0250 #### [facility] [address] [place], [address] BUN/CRE 14.7 RATIO Normal 10-20 [facility] Comment on above: Order Comment: Order Date: 07/23/24 Order Info: 0786- - CMP Order Info: 3016-3 - TSH Performed By: #### L 501.9520, L500.4050, L502.0250 #### [facility] [address] [place], [address] CA,Total 9.6 mg/dL Normal 8.5-10.1 [facility] Comment on above: Order Comment: Order Date: 07/23/24 Order Info: 0786-1 - CMP Order Info: 3016-3 - TSH Performed By: #### L 501.9520, L500.4050, L502.0250 #### [facility] [address] [place], [address] Chloride [Moles/Vol] 104 mmol/L Normal 98-107 [facility] Comment on above: Order Comment: Order Date: 07/23/24 Order Info: 0786-1 - CMP Order Info: 3 - TSH Performed By: #### L 501.9520, L500.4050, L502.0250 #### [facility] [address] [place], [address] CO2 [Moles/Vol] 25.0 mmol/L Normal 21.0-32.0 [facility] Comment on above: Order Comment: Order Date: 07/23/24 Order Info: 0786- - CMP Order Info: 3016-3 - TSH Performed By: #### L 501.9520, L500.4050, L502.0250 #### [facility] [address] [place], [address] Creatinine [Mass/Vol] 0.89 mg/dL Normal 0.70-1.30 [facility] Comment on above: Order Comment: Order Date: 07/23/24 Order Info: 0786-1 - CMP Order Info: 3016-3 - TSH Result Comment: The validity of the calculated GFR GFRAA in patients over 70 years has not been determined. Clinical correlation is essential. Performed By: #### L 501.9520, L500.4050, L502.0250 #### [facility] [address] [place], [address] EST GFR - AA 106 mL/min Normal >60 [facility] Comment on above: Order Comment: Order Date: 07/23/24 Order Info: 0786- - CMP Order Info: 3 - TSH Result Comment: Afri can [place] GFR Calc Performed By: #### L 501.9520, L500.4050, L502.0250 #### [facility] [address] [place], [address] GAP 6 Normal 5-15 [facility] Comment on above: Order Comment: Order Date: 07/23/24 Order Info: 0786 - CMP Order Info: 3015-10 - TSH Performed By: #### L 501.9520, L500.4050, L502.0250 #### [facility] [address] [place], [address] GFR/1.73 sq M.predicted among non-blacks MDRD (S/P/Bld) [Vol rate/Area] 87 mL/min/{1.73_m2} Normal >60 [facility] Comment on above: Order Comment: Order Date: 07/23/24 Order Info: 0786 - CMP Order Info: 3 - TSH Result Comment: Non- GFR Calc Performed By: #### L 501.9520, L500.4050, L502.0250 #### [facility] [address] [place], [address] Globulin (S) [Mass/Vol] 3.9 g/dL Normal 2.2-4.2 [facility] Comment on above: Order Comment: Order Date: 07/23/24 Order Info: 0786-1 - CMP Order Info: 3 - TSH Performed By: #### L 501.9520, L500.4050, L502.0250 #### [facility] [address] [place], [address] Glucose [Mass/Vol] 98 mg/dL Normal 74-106 [facility] Comment on above: Order Comment: Order Date: 07/23/24 Order Info: [id number] - CMP Order Info: 3016-3 - TSH Performed By: #### L [id number], L500.4050, L502.0250 #### [facility] [address] [place], [address] Potassium [Moles/Vol] 4.0 mmol/L Normal 3.5-5.1 [facility] Comment on above: Order Comment: Order Date: 07/23/24 Order Info: [id number] - CMP Order Info: 3015-3 - TSH Performed By: #### L [id number], L500.4050, L502.0250 #### [facility] [address] [place], [address] Sodium [Moles/Vol] 135 mmol/L Low 136-145 [facility] Comment on above: Order Comment: Order Date: 07/23/24 Order Info: [id number]- - CMP Order Info: 3 - TSH Performed By: #### L 501.9520, L500.4050, L502.0250 #### [facility] [address] [place], [address] T PROT 7.7 g/dL Normal 6.4-8.2 [facility] Comment on above: Order Comment: Order Date: 07/23/24 Order Info: 0786- - CMP Order Info: 3 - TSH Performed By: #### L 501.9520, L500.4050, L502.0250 #### [facility] [address] [place], [address] Urea nitrogen [Mass/Vol] 13 mg/dL Normal 7-18 [facility] Comment on above: Order Comment: Order Date: 07/23/24 Order Info: [id number] - CMP Order Info: [id number] - TSH Performed By: #### L [id number], L500.4050, L502.0250 #### [facility] [address] [place], [address] Microalb:Creat Ratio,Random URon 12-20-2024 Creatinine [Mass/Vol] 81.20 mg/dL Normal NO RANGE EST. [facility] Comment on above: Order Comment: Order Date: 07/23/24 Order Info: [id number] - MIACRE Performed By: #### L [id number], L500.4050, L502.0250 #### [facility] [address] [place], [address] MALB:CRE 30.0 mg/g CRE Normal <30 mg/g CRE [facility] Comment on above: Order Comment: Order Date: 07/23/24 Order Info: [id number] - MIACRE Performed By: #### L 501.9520, L500.4050, L502.0250 #### [facility] [address] [place], [address] MICROALBUMIN,UR 24.4 mg/L Normal NO RANGE EST. [facility] Comment on above: Order Comment: Order Date: 07/23/24 Order Info: [id number] - MIACRE Performed By: #### L [id number], L500.4050, L502.0250 #### [facility] [address] [place], [address] Thyroid Stim Hormone (TSH)on 07-23-2024 TSH 1.820 uIU/mL Normal 0.358-3.740 [facility] Comment on above: Order Comment: Order Date: 07/23/24 Order Info: [id number] - CMP Order Info: [id number] - TSH Performed By: #### L [id number], L500.4050, L502.0250 #### [facility] [address] [place], [address] Foot min 3 Viewson 4 Foot min 3 Views [facility] Imaging Services [address] [place] [address] Foot min 3 Views MR#: [id number] Acct: [id number] Name: OSWALDO FLORES Rep #: [id number] : 1940 M 84 From: Rusty Meza PCP: Dr. Robert Mireles MD Status: REG CLI Study: Foot min 3 Views Date of Exam: 05/25/24 Exam# [id number] Ordering Dr: Geneva Peña DPM -[id number] INDICATION: Idiopathic gout, right ankle and foot EXAMINATION/TECHNIQ UE: X-RAY - RIGHT XR Foot Min 3 Views 3 VIEWS COMPARISON: No relevant prior comparison study available FINDINGS: SOFT TISSUES: No soft tissue swelling or gas. Surgical clips in the medial aspect of the ankle. BONES/JOINTS: No acute fracture or subluxation.. Normal alignment. Preservation of the joint space.. No sclerotic or destructive changes observed. RAD/Foot min 3 Views IMPRESSION: No demonstrated acute changes. No erosive changes are seen. Electronically Signed: Rusty Gerardo MD at 13:11 EDT , CC: JACKELINE Peña; Dr. Robert Mireles MD Associate Marketing Manager: Signed Normal [facility] Uric Acidon 05-25-2024 URIC 4.2 mg/dL Normal 3.5-7.2 [facility] Comment on above: Result Comment: The drugs N-Acetylcysteine and Metamizole may falsely depress this assay. Performed By: #### L 501.1400 ####[facility] [address] [place], [address] Basophil percentageOrdered B y: Robert Mireles on 06-04-2023 Chloride [Moles/Vol] 104 mmol/L 98-107 [facility] Glucose [Mass/Vol] 93 mg/dL 74-106 [facility] Potassium [Moles/Vol] 4.0 mmol/L 3.5-5.1 [facility] Sodium [Moles/Vol] 136 mmol/L 136-145 [facility] - Chemistry and C hemistry - challengeOrdered By: Robert Mireles on 06-04-2023 CO2 [Moles/Vol] 23.0 mmol/L 21.0-32.0 [facility] Urea nitrogen/Creatinine [Mass ratio] 16.7 mg/mg 10-20 [facility] No Panel InformationOrdered By: Robert Mireles on 06-04-2023 Estimated GFR (MDRD) Amer 90 mL/min >60 [facility] Comment on above: GFR Calc Estimated GFR (MDRD) Non-Af Amer 74 mL/min >60 [facility] Comment on above: Non- GFR Calc Thyroid Stimulating Hormone (TSH) 1.56 uIU/mL 0.358-3.74 [facility] Vitamin D 25-Hydroxy 49.0 ng/mL [facility] Comment on above: Vitamin D 25(OH) Sta tus Range Deficiency <20 ng/mL (50nmol/L) Insufficiency 20 - 30 ng/mL (50 - 75 nmol/L) Sufficiency 30 - 100 ng/mL (75 - 250 nmol/L) Toxicity >100 ng/mL (>250 nmol/L) Serum or plasma calcium basia urement (mass/volume)Ordered By: Robert Mireles on 06-04-2023 Calcium [Mass/Vol] 9.7 mg/dL 8.5-10.1 [facility] Serum or plasma creatinine m easurement (mass/volume)Ordered By: Robert Mireles on 06-04-2023 Creatinine [Mass/Vol] 1.02 mg/dL 0.70-1.30 [facility] Comment on above: The validity of the calculated GFR & GFRAA in patients over 70 years has not been determined. Clinical correlation is essential. Serum or plasma urea nitroge n measurement (mass/volume)Ordered By: Robert Mireles on 06-04-2023 Urea nitrogen [Mass/Vol] 17 mg/dL 7-18 [facility] Thin prep Papanicolaou smear with manual screeningOrdered By: Robert Mireles on 11-01-2023 Thin prep Papanicolaou smear with manual screening 9 5-15 [facility] Basophil percentageOrdered B y: Ronn Jacob on 02-10-2023 Bilirubin [Mass/Vol] 0.90 mg/dL 0.20-1.00 [facility] Comment on above: For patients on eltr ombopag therapy, use of Dimension [place] TBIL is not recommended. Chloride [Moles/Vol] 107 mmol/L 98-107 [facility] Cholesterol [Mass/Vol] 119 mg/dL <200 [facility] Comment on above: <200 mg/dL Desirable 200-240 mg/dL Borderline >240 mg/dL High Risk Glucose [Mass/Vol] 99 mg/dL 74-106 [facility] Potassium [Moles/Vol] 4.3 mmol/L 3.5-5.1 [facility] Protein [Mass/Vol] 7.6 g/dL 6.4-8.2 [facility] Sodium [Moles/Vol] 136 mmol/L 136-145 [facility] Triglyceride [Mass/Vol] 175 mg/dL <199 [facility] Comment on above: The drugs N-Acetylcy steine and Metamizole may falsely depress this assay.Serum Triglycerides Reference Interval Normal <150 mg/dL Borderline high 150 - 199 mg/dL High 200 - 499 mg/dL Very High > or = 500 mg/dL Direct bilirubinOrdered By: Ronn Jacob on 02-10-2023 Bilirubin.direct [Mass/Vol] 0.24 mg/dL 0.00-0.30 [facility] - Chemistry and C hemistry - challengeOrdered By: Ronn Jacob on 02-10-2023 ALP [Catalytic activity/Vol] 69 U/L 45-117 [facility] ALT [Catalytic activity/Vol] 30 U/L 16-61 [facility] CO2 [Moles/Vol] 23.0 mmol/L 21.0-32.0 [facility] Globulin (S) [Mass/Vol] 4.0 g/dL 2.2-4.2 [facility] Urea nitrogen/Creatinine [Mass ratio] 14.9 mg/mg 10-20 [facility] No Panel InformationOrdered By: Ronn Jacob on 02-10-2023 Estimated GFR (MDRD) Amer 91 mL/min >60 [facility] Comment on above: GFR Calc Estimated GFR (MDRD) Non-Af Amer 75 mL/min >60 [facility] Comment on above: Non- GFR Calc Urine Microalbumin/Creatinine Ratio 11.0 mg/g CRE <30 [facility] Serum or plasma albumin basia urement (mass/volume)Ordered By: Ronn Jacob on 02-10-2023 Albumin [Mass/Vol] 3.6 g/dL 3.2-5.0 [facility] Serum or plasma albumin/glob ulin mass ratioOrdered By: Ronn Jacob on 02-10-2023 Albumin/Globulin [Mass ratio] 0.9 {ratio} 0.9-2.4 [facility] Serum or plasma calcium basia urement (mass/volume)Ordered By: Ronn Jacob on 02-10-2023 Calcium [Mass/Vol] 9.2 mg/dL 8.5-10.1 [facility] Serum or plasma cholesterol in HDL measurement (mass/volume)Ordered By: Ronn Jacob on 02-10-2023 Cholesterol in HDL [Mass/Vol] 31 mg/dL >40 [facility] Comment on above: The drugs N-Acetylcy steine and Metamizole may falsely depress this assay. Reference Range HDL <40 mg/dL Low HDL Cholesterol HDL >or= 60 mg/dL High HDL Cholesterol Serum or plasma cholesterol in VLDL measurement (mass/volume)Ordered By: Ronn Jacob on 02-10-2023 Cholesterol in VLDL [Mass/Vol] 35 mg/dL 5-40 [facility] Serum or plasma creatinine m easurement (mass/volume)Ordered By: Ronn Jacob on 02-10-2023 Creatinine [Mass/Vol] 1.01 mg/dL 0.70-1.30 [facility] Comment on above: The validity of the calculated GFR & GFRAA in patients over 70 years has not been determined. Clinical correlation is essential. Serum or plasma low density lipoprotein (LDL) cholesterol measurement (mass/volume)Ordered By: Ronn Jacob on 02-10-2023 Cholesterol in LDL [Mass/Vol] 53 mg/dL 0-130 [facility] Serum or plasma urea nitroge n measurement (mass/volume)Ordered By: Ronn Jacob on 02-10-2023 Urea nitrogen [Mass/Vol] 15 mg/dL 7-18 [facility] Thin prep Papanicolaou smear with manual screeningOrdered By: Ronn Jacob on 02-10-2023 Thin prep Papanicolaou smear with manual screening 25 U/L 15-37 [facility] Thin prep Papanicolaou smear with manual screening 6 5-15 [facility] Thin prep Papanicolaou smear with manual screening 14.6 mg/L NO RANGE EST. [facility] Urine creatinine measurement (mass/volume)Ordered By: Ronn Jacob on 02-10-2023 Creatinine (U) [Mass/Vol] 133.00 mg/dL NO RANGE EST. [facility] Basophil percentageOrdered B y: Dr. Mireles on 09-04-2022 Bilirubin [Mass/Vol] 1.00 mg/dL 0.20-1.00 [facility] Comment on above: For patients on eltr ombopag therapy, use of Dimension [place] TBIL is not recommended. Cholesterol [Mass/Vol] 129 mg/dL <200 [facility] Comment on above: <200 mg/dL Desirable 200-240 mg/dL Borderline >240 mg/dL High Risk Protein [Mass/Vol] 7.7 g/dL 6.4-8.2 [facility] Triglyceride [Mass/Vol] 137 mg/dL <199 [facility] Comment on above: The drugs N-Acetylcy steine and Metamizole may falsely depress this assay.Serum Triglycerides Reference Interval Normal <150 mg/dL Borderline high 150 - 199 mg/dL High 200 - 499 mg/dL Very High > or = 500 mg/dL Chloride [Moles/Vol] 103 mmol/L 98-107 [facility] Glucose [Mass/Vol] 111 mg/dL 74-106 [facility] Comment on above: Fasting Glucose resu lt from 100 to 125 mg/dL suggests IMPAIRED HOMEOSTASIS per A.D.A. criteria. Potassium [Moles/Vol] 4.4 mmol/L 3.5-5.1 [facility] Sodium [Moles/Vol] 135 mmol/L 136-145 [facility] Direct bilirubinOrdered By: Dr. Mireles on 09-04-2022 Bilirubin.direct [Mass/Vol] 0.23 mg/dL 0.00-0.30 [facility] - Chemistry and C hemistry - challengeOrdered By: Dr. Mireles on 09-04-2022 ALP [Catalytic activity/Vol] 74 U/L 45-117 [facility] ALT [Catalytic activity/Vol] 27 U/L 16-61 [facility] Free T4 [Mass/Vol] 1.09 ng/dL 0.76-1.46 [facility] Globulin (S) [Mass/Vol] 3.9 g/dL 2.2-4.2 [facility] CO2 [Moles/Vol] 25.0 mmol/L 21.0-32.0 [facility] Cobalamin (Vitamin B12) [Mass/Vol] 702 pg/mL 211-911 [facility] Urea nitrogen/Creatinine [Mass ratio] 13.2 mg/mg 10-20 [facility] No Panel InformationOrdered By: Dr. Mireles on 09-04-2022 Thyroid Stimulating Hormone (TSH) 1.16 uIU/mL 0.358-3.74 [facility] Estimated GFR (MDRD) Amer 86 mL/min >60 [facility] Comment on above: GFR Calc Estimated GFR (MDRD) Non-Af Amer 71 mL/min >60 [facility] Comment on above: Non- GFR Calc Prostate Specific Antigen Screen 2.03 ng/mL 0.00-4.00 [facility] Comment on above: This test was perfor med using the TPSA assay method [facility] the[facility]. Values obtained with differentassay methods cannot be used interchangably.When changing PSA assays in the course of monitoring apatient, additional sequential testing should be carriedout to confirm baseline values. Urine Microalbumin/Creatinine Ratio 10.7 mg/g CRE <30 [facility] Vitamin D 25-Hydroxy 37.8 ng/mL [facility] Comment on above: Vitamin D 25(OH) Sta tus Range Deficiency <20 ng/mL (50nmol/L) Insufficiency 20 - 30 ng/mL (50 - 75 nmol/L) Sufficiency 30 - 100 ng/mL (75 - 250 nmol/L) Toxicity >100 ng/mL (>250 nmol/L) Serum or plasma albumin basia urement (mass/volume)Ordered By: Dr. Mireles on 09-04-2022 Albumin [Mass/Vol] 3.8 g/dL 3.2-5.0 [facility] Serum or plasma albumin/glob ulin mass ratioOrdered By: Dr. Mireles on 09-04-2022 Albumin/Globulin [Mass ratio] 1.0 {ratio} 0.9-2.4 [facility] Serum or plasma calcium basia urement (mass/volume)Ordered By: Dr. Mireles on 09-04-2022 Calcium [Mass/Vol] 9.4 mg/dL 8.5-10.1 [facility] Serum or plasma cholesterol in HDL measurement (mass/volume)Ordered By: Dr. Mireles on 09-04-2022 Cholesterol in HDL [Mass/Vol] 31 mg/dL >40 [facility] Comment on above: The drugs N-Acetylcy steine and Metamizole may falsely depress this assay. Reference Range HDL <40 mg/dL Low HDL Cholesterol HDL >or= 60 mg/dL High HDL Cholesterol Serum or plasma cholesterol in VLDL measurement (mass/volume)Ordered By: Dr. Mireles on 09-04-2022 Cholesterol in VLDL [Mass/Vol] 27 mg/dL 5-40 [facility] Serum or plasma creatinine m easurement (mass/volume)Ordered By: Dr. Mireles on 09-04-2022 Creatinine [Mass/Vol] 1.06 mg/dL 0.70-1.30 [facility] Comment on above: The validity of the calculated GFR & GFRAA in patients over 70 years has not been determined. Clinical correlation is essential. Serum or plasma low density lipoprotein (LDL) cholesterol measurement (mass/volume)Ordered By: Dr. Mireles on 09-04-2022 Cholesterol in LDL [Mass/Vol] 71 mg/dL 0-130 [facility] Serum or plasma urea nitroge n measurement (mass/volume)Ordered By: Dr. Mireles on 09-04-2022 Urea nitrogen [Mass/Vol] 14 mg/dL 7-18 [facility] Thin prep Papanicolaou smear with manual screeningOrdered By: Dr. Mireles on 09-04-2022 Thin prep Papanicolaou smear with manual screening 24 U/L 15-37 [facility] Thin prep Papanicolaou smear with manual screening 7 5-15 [facility] Thin prep Papanicolaou smear with manual screening 12.2 mg/L NO RANGE EST. [facility] Urine creatinine measurement (mass/volume)Ordered By: Dr. Mireles on 09-04-2022 Creatinine (U) [Mass/Vol] 114.00 mg/dL NO RANGE EST. [facility] Absolute lymphocyte countOrd ered By: Dr. Arcos on 06-07-2022 Lymphocytes Auto (Unsp spec) [#/Vol] 2.40 10*3/uL 0.83-4.51 [facility] Basophil percentageOrdered B y: Dr. Arcos on 06-07-2022 Basophils/100 WBC (Bld) 0.6 % 0-1 [facility] Chloride [Moles/Vol] 106 mmol/L 98-107 [facility] Eosinophils/100 WBC (Bld) 2.2 % 0-5 [facility] Glucose [Mass/Vol] 116 mg/dL 74-106 [facility] Comment on above: Fasting Glucose resu lt from 100 to 125 mg/dL suggests IMPAIRED HOMEOSTASIS per A.D.A. criteria. Neutrophils (Bld) [#/Vol] 3.8 10*3/uL 2.0-7.7 [facility] Neutrophils/100 WBC (Bld) 54.4 % 47-70 [facility] Potassium [Moles/Vol] 4.0 mmol/L 3.5-5.1 [facility] Sodium [Moles/Vol] 139 mmol/L 136-145 [facility] WBC (Bld) [#/Vol] 7.0 10*3/uL 4.4-11.0 [facility] Blood erythrocytes count (nu mber/volume)Ordered By: Dr. Arcos on 06-07-2022 RBC (Bld) [#/Vol] 4.88 10*6/uL 4.6-6.2 [facility] Blood hemoglobin measurement (mass/volume)Ordered By: Dr. Arcos on 06-07-2022 Hemoglobin (Bld) [Mass/Vol] 16.2 g/dL 13.0-16.5 [facility] Blood lymphocytes/100 leukoc ytesOrdered By: Dr. Arcos on 06-07-2022 Lymphocytes/100 WBC (Bld) 34.4 % 19-41 [facility] Blood monocytes/100 leukocyt esOrdered By: Dr. Arcos on 06-07-2022 Monocytes/100 WBC (Bld) 8.0 % 0-10 [facility] Blood platelet mean volumeOr dered By: Dr. Arcos on 06-07-2022 Platelet mean volume (Bld) [Entitic vol] 9.5 fL 6.2-12.0 [facility] Determination of erythrocyte mean corpuscular volume (MCV)Ordered By: Dr. Arcos on 06-07-2022 MCV (RBC) [Entitic vol] 94.1 fL 80-94 [facility] Hematocrit Auto (Bld) [Volum e fraction]Ordered By: Dr. Arcos on 06-07-2022 Hematocrit (Bld) [Volume fraction] 45.9 % 40-54 [facility] - Chemistry and C hemistry - challengeOrdered By: Dr. Arcos on 06-07-2022 CO2 [Moles/Vol] 23.0 mmol/L 21.0-32.0 [facility] Urea nitrogen/Creatinine [Mass ratio] 15.0 mg/mg 10-20 [facility] - Hematology and Cell countsOrdered By: Dr. Arcos on 06-07-2022 Erythrocyte distribution width (RBC) [Entitic vol] 43.3 fL 35.1-43.9 [facility] Erythrocyte distribution width (RBC) [Ratio] 12.5 % 11.6-14.6 [facility] Immature granulocytes/100 WBC (Bld) 0.400 % 0.0-0.9 [facility] Comment on above: IG% - Immature Granu locytes (promyelocytes, myelocytes and metamyelocytes) > 1% indicates that a LEFT SHIFT is Present. MCH (RBC) [Entitic mass] 33.2 pg 27.0-32.0 [facility] Nucleated RBC/100 WBC (Bld) [Ratio] 0 % 0-5 [facility] MCHC Auto (RBC) [Mass/Vol]Or dered By: Dr. Arcos on 06-07-2022 MCHC (RBC) [Mass/Vol] 35.3 g/dL 32-36 [facility] No Panel InformationOrdered By: Dr. Arcos on 06-07-2022 Estimated Creatinine Clearance Calc 54.17 ml/min [facility] Estimated GFR (MDRD) Amer 92 mL/min >60 [facility] Comment on above: GFR Calc Estimated GFR (MDRD) Non-Af Amer 76 mL/min >60 [facility] Comment on above: Non- GFR Calc Platelets bldOrdered By: Dr. Arcos on 06-07-2022 Platelets (Bld) [#/Vol] 188 10*3/uL 150-450 [facility] Serum or plasma calcium basia urement (mass/volume)Ordered By: Dr. Arcos on 06-07-2022 Calcium [Mass/Vol] 9.0 mg/dL 8.5-10.1 [facility] Serum or plasma creatinine m easurement (mass/volume)Ordered By: Dr. Arcos on 06-07-2022 Creatinine [Mass/Vol] 1.00 mg/dL 0.70-1.30 [facility] Comment on above: The validity of the calculated GFR & GFRAA in patients over 70 years has not been determined. Clinical correlation is essential. Serum or plasma urea nitroge n measurement (mass/volume)Ordered By: Dr. Arcos on 06-07-2022 Urea nitrogen [Mass/Vol] 15 mg/dL 7-18 [facility] Thin prep Papanicolaou smear with manual screeningOrdered By: Dr. Arcos on 06-07-2022 Thin prep Papanicolaou smear with manual screening 10 5-15 [facility] Basophil percentageon 2021 Cholesterol [Mass/Vol] 127 mg/dL <200 [facility] Work Phone: Comment on above: <200 mg/dL Desirable 200-240 mg/dL Borderline >240 mg/dL High Risk Triglyceride [Mass/Vol] 153 mg/dL <199 [facility] Work Phone: Comment on above: The drugs N-Acetylcy steine and Metamizole may falsely depress this assay.Serum Triglycerides Reference Interval Normal <150 mg/dL Borderline high 150 - 199 mg/dL High 200 - 499 mg/dL Very High > or = 500 mg/dL Bilirubin [Mass/Vol] 0.90 mg/dL 0.20-1.00 [facility] Work Phone: Comment on above: For patients on eltr ombopag therapy, use of Dimension [place] TBIL is not recommended. Chloride [Moles/Vol] 102 mmol/L 98-107 [facility] Work Phone: Glucose [Mass/Vol] 101 mg/dL 74-106 [facility] Work Phone: Comment on above: Fasting Glucose resu lt from 100 to 125 mg/dL suggests IMPAIRED HOMEOSTASIS per A.D.A. criteria. Potassium [Moles/Vol] 4.3 mmol/L 3.5-5.1 [facility] Work Phone: Protein [Mass/Vol] 7.6 g/dL 6.4-8.2 [facility] Work Phone: [phone] Sodium [Moles/Vol] 134 mmol/L 136-145 [facility] Work Phone: Direct bilirubinon Bilirubin.direct [Mass/Vol] 0.19 mg/dL 0.00-0.30 [facility] Work Phone: Laboratory - Chemistry and C hemistry - challengeon 03-04-2022 ALP [Catalytic activity/Vol] 71 U/L 45-117 [facility] Work Phone: ALT [Catalytic activity/Vol] 37 U/L 16-61 [facility] Work Phone: CO2 [Moles/Vol] 27.0 mmol/L 21.0-32.0 [facility] Work Phone: Globulin (S) [Mass/Vol] 3.8 g/dL 2.2-4.2 [facility] Work Phone: Urea nitrogen/Creatinine [Mass ratio] 21.1 mg/mg 10-20 [facility] Work Phone: No Panel Informationon 03-04 Urine Microalbumin/Creatinine Ratio 12.6 mg/g CRE <30 [facility] Work Phone: Estimated GFR (MDRD) Amer 98 mL/min >60 [facility] Work Phone: Comment on above: GFR Calc Estimated GFR (MDRD) Non-Af Amer 81 mL/min >60 [facility] Work Phone: Comment on above: Non- GFR Calc Vitamin D 25-Hydroxy 53.8 ng/mL [facility] Work Phone: Comment on above: Vitamin D 25(OH) Sta tus Range Deficiency <20 ng/mL (50nmol/L) Insufficiency 20 - 30 ng/mL (50 - 75 nmol/L) Sufficiency 30 - 100 ng/mL (75 - 250 nmol/L) Toxicity >100 ng/mL (>250 nmol/L) Serum or plasma albumin basia urement (mass/volume)on 03-04-2022 Albumin [Mass/Vol] 3.8 g/dL 3.2-5.0 [facility] Work Phone: Serum or plasma albumin/glob ulin mass ratioon 03-04-2022 Albumin/Globulin [Mass ratio] 1.0 {ratio} 0.9-2.4 [facility] Work Phone: Serum or plasma calcium basia urement (mass/volume)on 03-04-2022 Calcium [Mass/Vol] 9.5 mg/dL 8.5-10.1 [facility] Work Phone: Serum or plasma cholesterol in HDL measurement (mass/volume)on 03-04-2022 Cholesterol in HDL [Mass/Vol] 30 mg/dL >40 [facility] Work Phone: Comment on above: The drugs N-Acetylcy steine and Metamizole may falsely depress this assay. Reference Range HDL <40 mg/dL Low HDL Cholesterol HDL >or= 60 mg/dL High HDL Cholesterol Serum or plasma cholesterol in VLDL measurement (mass/volume)on 03-04-2022 Cholesterol in VLDL [Mass/Vol] 31 mg/dL 5-40 [facility] Work Phone: [phone] Serum or plasma creatinine m easurement (mass/volume)on 03-04-2022 Creatinine [Mass/Vol] 0.95 mg/dL 0.70-1.30 [facility] Work Phone: Comment on above: The validity of the calculated GFR & GFRAA in patients over 70 years has not been determined. Clinical correlation is essential. Serum or plasma low density lipoprotein (LDL) cholesterol measurement (mass/volume)on 03-04-2022 Cholesterol in LDL [Mass/Vol] 66 mg/dL 0-130 [facility] Work Phone: Serum or plasma urea nitroge n measurement (mass/volume)on 03-04-2022 Urea nitrogen [Mass/Vol] 20 mg/dL 7-18 [facility] Work Phone: Thin prep Papanicolaou smear with manual screeningon 03-04-2022 Thin prep Papanicolaou smear with manual screening 17.2 mg/L NO RANGE EST. [facility] Work Phone: Thin prep Papanicolaou smear with manual screening 27 U/L 15-37 [facility] Work Phone: Thin prep Papanicolaou smear with manual screening 5 5-15 [facility] Work Phone: Urine creatinine measurement (mass/volume)on 03-04-2022 Creatinine (U) [Mass/Vol] 136.00 mg/dL NO RANGE EST. [facility] Work Phone: Office Visit: [facility] 06-25-20 Documentation of current medications (procedure) Done Invalid Interpretation Code [place] [facility] Work Phone: [phone] Fall risk assessment No Invalid Interpretation Code [place] [facility] Work Phone: [phone] Lab Report: Lipid Profileon 06-23-2017 Cholesterol 83 mg/dL Invalid Interpretation Code 200 [place] [facility] Work Phone: [phone] HDL Cholesterol 28 mg/dL Low [facility] Work Phone: [phone] LDL Cholesterol 22 mg/dL Invalid Interpretation Code 0-130 [place] [facility] Work Phone: [phone] Triglyceride 166 mg/dL Invalid Interpretation Code [place] [facility] Work Phone: [phone] very low density lipoproteins 33 mg/dL Invalid Interpretation Code 5-40 [facility] Work Phone: [phone] Lab Report: Liver Profileon 06-23-2017 Alanine aminotransferase (ALT) 34 U/L Invalid Interpretation Code 12-78 [facility] Work Phone: [phone] Albumin 3.4 g/dL Invalid Interpretation Code 3.4-5.0 [facility] Work Phone: [phone] Alkaline phosphatase (ALP) 82 U/L Invalid Interpretation Code 45-117 [facility] Work Phone: [phone] Aspartate aminotransferase (AST) 25 U/L Invalid Interpretation Code 15-37 [facility] Phone: [phone] Bilirubin (direct) 0.14 mg/dL Invalid Interpretation Code 0.00-0.30 [facility] Work Phone: [phone] Bilirubin (total) 0.60 mg/dL Invalid Interpretation Code 0.20-1.00 [facility] Phone: [phone] Globulin 4.0 g/dL Invalid Interpretation Code 2.2-4.2 [facility] Work Phone: [phone] Protein 7.4 g/dL Invalid Interpretation Code 6.4-8.2 [facility] Phone: [phone] Office Visiton 12-23-2016 Fall risk assessment No Invalid Interpretation Code [facility] Phone: [phone] Clinical Lists Update: Prelo can crimper 12-20-2016 Left ventricular Ejection fraction 55 % Invalid Interpretation Code [facility] Phone: [phone] Lab Report: Comprehensive De tabolic Profilon 09-09-2016 Albumin/Globulin Ratio 1 {ratio} Invalid Interpretation Code 0.9-2.4 [facility] Work Phone: [phone] Anion gap 8 mmol/L Invalid Interpretation Code 5-15 [facility] Work Phone: [phone] BUN/Creatinine Ratio 14.6 RATIO Invalid Interpretation Code 10-20 [facility] Phone: [phone] Calcium 9.4 mg/dL Invalid Interpretation Code 8.5-10.1 [facility] Work Phone: [phone] Chloride 102 mmol/L Invalid Interpretation Code 98-107 [facility] Phone: [phone] CO2 25.0 mmol/L Invalid Interpretation Code 21.0-32.0 [facility] Phone: [phone] Creatinine 0.96 mg/dL Invalid Interpretation Code 0.70-1.30 [facility] Phone: [phone] eGFR (non-black) 81 mL/min/{1.73_m2} Invalid Interpretation Code >60 [facility] Work Phone: [phone] eGFR (non-black) 98 mL/min/{1.73_m2} Invalid Interpretation Code >60 [facility] Phone: [phone] Glucose mass conc 93 mg/dL Invalid Interpretation Code 70-110 [facility] Phone: [phone] Potassium molar conc 3.9 mmol/L Invalid Interpretation Code 3.5-5.1 [facility] Phone: [phone] Sodium 135 mmol/L Low 136-145 [facility] Phone: [phone] Urea nitrogen 14 mg/dL Invalid Interpretation Code 7-18 [facility] Phone: [phone]) Lab Report: Prealbuminon Prealbumin 30.9 mg/dL Invalid Interpretation Code 20.0-40.0 [facility] Phone: [phone] Lab Report: Thyroid Stim Hor vijay (TSH)on 09-09-2016 Thyroid stimulating hormone (TSH) 2.23 u[iU]/mL Invalid Interpretation Code 0.358-3.74 [facility] Phone: [phone] Office Visit: [facility] 03-18-20 16 Dietary management education, guidance, and counseling (procedure) yes Invalid Interpretation Code [facility] Phone: [phone] Documentation of current medications (procedure) Done Invalid Interpretation Code [facility] Phone: [phone] Office Visiton 09-20-2015 Tobacco use CPHS Never smoker Invalid Interpretation Code [facility] Phone: [phone] Lab Report: CBC W/Diff, Auto matedon 03-14-2015 Absolute Neut 7.2 X10 3/UL Invalid Interpretation Code 2.0-7.7 [facility] Work Phone: [phone] Basophils/100 WBC Auto (Bld) 0.3 % Invalid Interpretation Code 0-1 [facility] Work Phone: [phone] Eosinophils/100 leukocytes 1.8 % Invalid Interpretation Code 0-5 [facility] Work Phone: [phone] Erythrocyte distribution width Auto Ratio (RBC) 13.3 % Invalid Interpretation Code 11.6-14.6 [facility] Work Phone: [phone] Erythrocytes (RBC) 5.38 10*6/uL Invalid Interpretation Code 4.6-6.2 [facility] Work Phone: [phone] Hematocrit (HCT) 50.5 % Invalid Interpretation Code 40-54 [facility] Work Phone: [phone] Hemoglobin mass conc (Bld) 17.2 g/dL High 13.0-16.5 [facility] Work Phone: [phone] Immature granulocytes/100 WBC (Bld) 0.500 % Invalid Interpretation Code 0.0-0.9 [facility] Phone: [phone] Lymphocytes 2.81 X10 3/UL Invalid Interpretation Code 0.83-4.51 [facility] Phone: [phone] Lymphocytes/100 leukocytes 25.5 % Invalid Interpretation Code 19-41 [facility] Phone: [phone] MCH 32.0 pg Invalid Interpretation Code 27.0-32.0 [facility] Work Phone: [phone] MCHC mass conc (RBC) 34.1 G/GL Invalid Interpretation Code 32-36 [facility] Work Phone: [phone] MCV 93.9 fL Invalid Interpretation Code 80-94 [facility] Work Phone: [phone] Monocytes/100 leukocytes 7.2 % Invalid Interpretation Code 0-10 [facility] Work Phone: [phone] Neutrophils/100 WBC Auto (Bld) 64.7 % Invalid Interpretation Code 47-70 [facility] Phone: [phone] Platelets 221 10*3/mm3 Invalid Interpretation Code 150-450 [facility] Work Phone: [phone] PMV by Ankush 10.2 fL Invalid Interpretation Code 6.2-12.0 [facility] Work Phone: [phone] RDW SD 45.5 fL High 35.1-43.9 [facility] Work Phone: [phone] WBC (Leukocytes) 11.0 10*3/uL Invalid Interpretation Code 4.4-11.0 [facility] Work Phone: [phone] Office Visiton 09-12-2014 cardiac risk group C Invalid Interpretation Code [facility] Work Phone: [phone] General cardiovascular disease 10Y risk [#] [place].Susana'Agostdioni N/A Invalid Interpretation Code [facility] Work Phone: [phone] Lab Report: LIVER 04-21-20 14 ALK 76 U/L Normal 45-117 [facility] Work Phone: [phone] Replaced Document: Tuan Clark CG Observationson 04-05-2014 EKG QRS axis 2 deg Invalid Interpretation Code [facility] Work Phone: [phone] Interpretation Marked sinus Bradycardia -RSR(V1) -nondiagnostic . -Inferior infarct -probably not recent . ABNORMAL Invalid Interpretation Code [facility] Work Phone: [phone] P May 45 deg Invalid Interpretation Code [facility] Work Phone: [phone] MO Interval 188 ms Invalid Interpretation Code [facility] Work Phone: [phone] Pulse (Heart Rate) 48 /min Invalid Interpretation Code [facility] Work Phone: [phone] Pulse (Heart Rate) 354 ms Invalid Interpretation Code [facility] Work Phone: [phone] QRS Duration 102 ms Invalid Interpretation Code [facility] Work Phone: [phone] QT Interval new path ms Invalid Interpretation Code [facility] Work Phone: [phone] T May 1 deg Invalid Interpretation Code [facility] Work Phone: [phone] Lab Report: [facility] [place] 07-21-2013 Urine, creatinine 204.0 mg/dL Normal NO RANGE EST. [facility] Work Phone: [phone] Clinical Lists Update: Prelo can crimper 05-20-2012 Thyroxine (T4) 10.1 ug/dL Invalid Interpretation Code [facility] Work Phone: [phone] Lab Report: MGon 05-20-2012 Magnesium 1.8 mg/dL Normal 1.8-2.4 [facility] Work Phone: [phone] Office Visiton 11-28-2011 Alcoholism counseling (procedure) no Invalid Interpretation Code [facility] Work Phone: [phone] Lab Report: PSAon 11-20-2011 PSA 0.5 ng/mL Normal 0.0-4.0 [facility] Work Phone: [phone] Vital Signs Date Time Vital Sign Value Performing Clinician Faci [facility]hav[facility] 02-02-2025 08:25-0400 Diastolic blood pressure 81 mm[Hg] Dr. Robert Mireles MD Work Phone: [facility] 02-02-2025 08:25-0400 Systolic blood pressure 161 mm[Hg] Dr. Robert Mireles MD Work Phone: [facility] 02-02-2025 08:17-0400 Body height 170.[address] Robert Mireles MD Work Phone: [facility] 02-02-2025 08:17-0400 Body mass index (BMI) [Ratio] 25.5 kg/m2 Dr. Robert Mireles MD Work Phone: [facility] 02-02-2025 08:17-0400 Body weight 73.[address] Robert Mireles MD Work Phone: [facility] 02-02-2025 08:17-0400 Heart rate 54 /min Dr. Robert Mireles MD Work Phone: [facility] 02-02-2025 08:17-0400 Respiratory rate 18 /min Dr. Robert Mireles MD Work Phone: [facility] 10-06-2023 09:58-0500 Body height 170.[address] Robert Mireles Work Phone: [facility] 10-06-2023 09:57-0500 Body mass index (BMI) [Ratio] 25.5 kg/m2 Dr. Robert Mireles Work Phone: [facility] 10-06-2023 09:57-0500 Body weight 73.[address] Robert Mireles Work Phone: [facility] 10-06-2023 09:57-0500 Diastolic blood pressure 81 mm[Hg] Dr. Robert Mireles Work Phone: [facility] 10-06-2023 09:57-0500 Heart rate 56 /min Dr. Robert Mireles Work Phone: [facility] 10-06-2023 09:57-0500 Respiratory rate 18 /min Dr. Robert Mireles Work Phone: [facility] 10-06-2023 09:57-0500 SaO2% (BldA) [Mass fraction] 96 % Dr. Robert Mireles Work Phone: [facility] 10-06-2023 09:57-0500 Systolic blood pressure 153 mm[Hg] Dr. Robert Mireles Work Phone: [facility] 06-07-2022 12:07-0400 Diastolic blood pressure 74 mm[Hg] [facility] 06-07-2022 12:07-0400 Heart rate 74 /min [facility] 06-07-2022 12:07-0400 Respiratory rate 16 /min [facility] 06-07-2022 12:07-0400 SaO2% (BldA) [Mass fraction] 98 % [facility] 06-07-2022 12:07-0400 Systolic blood pressure 166 mm[Hg] [facility] 06-07-2022 08:31-0400 Body height 170.18 cm [facility] 06-07-2022 08:31-0400 Body mass index (BMI) [Ratio] 26.4 kg/m2 [facility] 06-07-2022 08:31-0400 Body temperature 97.6 [degF] [facility] 06-07-2022 08:31-0400 Body weight 76.6 kg [facility] 06-25-2017 11:25-0500 BMI (Body Mass Index) 26.94 kg/m2 [facility] Work Phone: 06-25-2017 11:25-0500 BP Diastolic 70 mm[Hg] [facility] Work Phone: 06-25-2017 11:25-0500 BP Systolic 110 mm[Hg] [facility] Work Phone: 06-25-2017 11:25-0500 Height 170.18 cm [facility] Work Phone: 06-25-2017 11:25-0500 Pulse (Heart Rate) 68 /min [facility] Work Phone: 06-25-2017 11:25-0500 Respiratory Rate 20 /min [facility] Work Phone: 06-25-2017 11:25-0500 Weight 78.02 kg [facility] Work Phone: 12-23-2016 13:07-0400 BMI (Body Mass Index) 26.03 kg/m2 Suzette Choi PA-C [facility] Work Phone: 12-23-2016 13:07-0400 BP Diastolic 76 mm[Hg] Suzette Choi PA-C [facility] Work Phone: 12-23-2016 13:07-0400 BP Systolic 124 mm[Hg] Suzette Choi PA-C [facility] Work Phone: 12-23-2016 13:07-0400 Height 170.18 cm Suzette Choi PA-C [facility] Work Phone: 12-23-2016 13:07-0400 Pulse (Heart Rate) 64 /min Suzette Choi PA-C [facility] Work Phone: 12-23-2016 13:07-0400 Respiratory Rate 18 /min Suzette Choi PA-C [facility] Work Phone: [phone] Weight 75.39 kg Suzette Choi PA-C [facility] Work Phone: [phone] BSA (Body Surface Area) 1.92 m2 Suzette Choi PA-C [facility] Work Phone: Encounters Encounter Date Encounter Type Care Provider Facility Start: 04-27-2025 End: 04-27-[address] Robert Mireles MD Work Phone: -Physical Therapy Start: 04-27-2025 End: 04-27-[address] Robert Mireles MD -Physical Therapy Work Phone: Start: 04-06-[address] Robert Mireles MD -Physical Therapy Work Phone: Start: 03-31-2025 End: 03-31-[address] Robert Mireles MD Work Phone: -[facility] Start: 03-31-2025 End: 03-31-[address] Robert Mireles MD -[facility] Work Phone: Start: 03-31-2025 End: 03-31-2025 ambulatory Robert Mireles Facility:[facility] Start: 02-02-2025 End: 02-02-[address] Arsh Jimenez MD -[facility] Work Phone: Start: 02-02-2025 End: 02-02-[address] Robert Mireles MD Work Phone: -[facility] Start: 07-23-2024 End: 07-23-2024 ambulatory Robert Mireles Facility:[facility] Start: 05-25-2024 End: 05-25-2024 ambulatory Geneva Peña Facility:[facility] Start: 11-24-2023 Non-patient / Non-visit Dr. Samuel Mireles Work Phone: [facility] Start: 11-24-2023 End: 11-24-[address] Robert Mireles Work Phone: [facility] Work Phone: Start: 11-24-2023 End: 11-24-[address] Robert Mireles Work Phone: [facility] Work Phone: Start: 10-06-2023 End: 10-06-[address] Robert Mireles Work Phone: [facility] Work Phone: Start: 06-04-2023 End: 06-04-2023 ambulatory [facility] Work Phone: Start: 06-04-2023 End: 06-04-[address] [facility] Work Phone: Start: 02-10-2023 End: 02-10-2023 ambulatory [facility] Work Phone: Start: 02-10-2023 End: 02-10-[address] [facility] Work Phone: Start: 09-04-2022 End: 09-04-2022 ambulatory [facility] Work Phone: Start: 09-04-2022 End: 09-04-2022 [facility] Start: 06-07-2022 End: 06-07-2022 [facility] Start: 03-04-2022 End: 03-04-[address] [facility] Procedures Date Procedure Procedure Detail Performing Clinician Start: 03-31-2025 Serologic test for syphilis Dr. Robert Mireles MD Work Phone: Start: 11-24-2023 Radionuclide imaging of perfusion of myocardium under exercise stress Dr. Robert Mireles Work Phone: Start: 06-07-2022 CT angiography of he ad and neck Start: 06-25-2017 End: 06-25-2017 Follow Up Appt 6 months Suzette montes PA-C Work Phone: Start: 06-25-2017 End: 06-25-2017 PFM [facility] Ch[facility] PA-C Work Phone: Start: 03-14-2017 End: 06-24-2017 [...] PA-C Work Phone: Start: 03-18-2016 End: 03-18-2016 PF [facility] PA-C Work Phone: Start: 03-04-2016 End: 03-13-2016 [...] 03-14-2015 End: 03-14-2015 *CMP Complete Metabolic Panel Suzette Choi PA-C Work Phone: Start: 03-14-2015 End: 03-14-2015 SHOE WORKER Suzette Choi PA-C Work Phone: Start: 03-14-2015 End: 03-15-2015 Documentation of current medications Suzette Choi PA-C Work Phone: Start: 03-14-2015 End: 03-14-2015 Follow Up Appt 6 months Suzette montes PA-C Work Phone: Start: 03-14-2015 End: 09-14-2015 Lipid 1996 panel - Serum or Plasma Suzette Choi PA-C Work Phone: Start: 03-14-2015 End: 09-14-2015 Nuclear stress test -exercise Suzette Choi PA-C Work Phone: Start: 03-14-2015 End: 03-14-2015 Thyrotropin [Units/volume] in Serum or Plasma Suzette Choi PA-C Work Phone: Start: 09-12-2014 End: 03-01-2015 [...] MD Start: 04-19-2014 End: 04-21-2014 *BMP Suzette Choi PA-C Work Phone: Start: 04-05-2014 End: 04-05-2014 Ecg routine ecg w/least 12 lds w/i&r Suzette Choi PA-C Work Phone: Start: 04-05-2014 End: 04-05-2014 [...] Serum or Plasma Stevie Sanchez MD Start: 01-02-1997 History of coronary artery bypass grafting History of coronary artery bypass surgery Comment on above: CABG x4- MURCIA to LAD , SVG to the diagonal branch of the LAD, SVG to the CX, and SVG to RCA 01/27/97 H/O: surgery History of gastr ic surgery Plan of Treatment Date Care Activity Detail Author Start: 03-30-2018 End: 03-30-2018 Appointment Appointment [facility] Phone: Start: 12-22-2017 End: 06-24-2017 *Hepatic Function Panel *Hepatic Function Panel [facility] Phone: Start: 12-22-2017 End: 06-24-2017 Lipid panel [AGGREGATE] *Lipid Profile CC PCP [facility] Work Phone: Start: 06-25-2017 End: 06-25-2017 Follow Up Appt 6 months Follow Up Appt 6 months [place] Work Phone: Start: 06-25-2017 End: 06-25-2017 PFM PFM [facility] Work Phone: Start: 06-25-2017 End: 06-25-2017 Appointment Appointment [facility] Phone: Start: 03-14-2017 End: 06-24-2017 *Hepatic Function Panel *Hepatic Function Panel [facility] Work Phone: Start: 03-14-2017 End: 06-24-2017 Lipid panel [AGGREGATE] *Lipid Profile CC PCP [facility] Work Phone: Start: 12-23-2016 End: 06-05-2017 Follow Up Appt 6 months Follow Up Appt 6 months [facility] Work Phone: Start: 12-23-2016 End: 06-05-2017 Follow Up Appt Other Follow Up Appt Other [facility] Work Phone: Start: 12-23-2016 End: 06-05-2017 MMM MMM [facility] Work Phone: Start: 09-04-2016 End: 09-12-2016 *Hepatic Function Panel *Hepatic Function Panel [facility] Work Phone: Start: 09-04-2016 End: 09-12-2016 Lipid panel [AGGREGATE] *Lipid Profile CC PCP [facility] Work Phone: Start: 03-18-2016 End: 03-18-2016 Follow Up Appt 6 months Follow Up Appt 6 months [facility] Work Phone: Start: 03-18-2016 End: 03-18-2016 PFM PFM [facility] Work Phone: Start: 03-04-2016 End: 03-13-2016 *Hepatic Function Panel *Hepatic Function Panel [facility] Work Phone: Start: 03-04-2016 End: 03-13-2016 Lipid panel [AGGREGATE] *Lipid Profile CC PCP [facility] Work Phone: Start: 11-01-2015 End: 11-01-2015 Follow Up BP Check Follow Up BP Check [facility] Work Phone: Start: 09-20-2015 End: 03-06-2016 *Hepatic Function Panel *Hepatic Function Panel [facility] Work Phone: Start: 09-20-2015 End: 09-20-2015 Follow Up Appt 6 months Follow Up Appt 6 months [facility] Work Phone: Start: 09-20-2015 End: 09-20-2015 Follow Up Appt Other Follow Up Appt Other [facility] Work Phone: Start: 09-20-2015 End: 03-06-2016 Lipid panel [AGGREGATE] *Lipid Profile CC PCP [facility] Work Phone: Start: 09-20-2015 End: 09-20-2015 MMM MMM [facility] Work Phone: Start: 09-14-2015 End: 09-19-2015 *Hepatic Function Panel *Hepatic Function Panel [facility] Work Phone: Start: 09-14-2015 End: 09-19-2015 Lipid panel [AGGREGATE] *Lipid Profile CC PCP [facility] Work Phone: Start: 03-14-2015 End: 03-14-2015 *CBC with Differential *CBC with Differential [facility] Work Phone: Start: 03-14-2015 End: 03-14-2015 *CMP Complete Metabolic Panel *CMP Complete Metabolic Panel [facility] Work Phone: Start: 03-14-2015 End: 03-14-2015 SHOE WORKER SHOE WORKER [facility] Work Phone: Start: 03-14-2015 End: 03-14-2015 Follow Up Appt 6 months Follow Up Appt 6 months [facility] Work Phone: Start: 03-14-2015 End: 09-14-2015 Lipid panel [AGGREGATE] *Lipid Profile CC PCP [facility] Work Phone: Start: 03-14-2015 End: 09-14-2015 Nuclear stress test -exercise Nuclear stress test -exercise [facility] Work Phone: Start: 03-14-2015 End: 03-14-2015 Thyroid stimulating hormone (TSH) *TSH [facility] Work Phone: Start: 09-12-2014 End: 03-01-2015 Chest x-ray X-Ray, Chest, PA & Lateral [facility] Work Phone: Start: 09-12-2014 End: 03-01-2015 Follow Up Appt 6 months Follow Up Appt 6 months [facility] Work Phone: Start: 09-12-2014 End: 03-01-2015 MMM MMM [facility] Work Phone: Start: 07-04-2014 End: 04-21-2014 *Hepatic Function Panel *Hepatic Function Panel [facility] Work Phone: Start: 07-04-2014 End: 04-21-2014 Lipid panel [AGGREGATE] *Lipid Profile CC PCP [facility] Work Phone: Start: 04-19-2014 End: 04-21-2014 *BMP *BMP [facility] Work Phone: Start: 04-05-2014 End: 04-05-2014 Ecg routine ecg w/least 12 lds w/i&r EKG (In office) [facility] Work Phone: Start: 04-05-2014 End: 04-05-2014 Follow Up Appt Other Follow Up Appt Other [facility] Work Phone: Start: 09-20-2013 End: 01-12-2014 *Hepatic Function Panel *Hepatic Function Panel [facility] Work Phone: Start: 09-20-2013 End: 09-20-2013 Follow Up Appt 6 months Follow Up Appt 6 months [facility] Work Phone: Start: 09-20-2013 End: 01-12-2014 Lipid panel [AGGREGATE] *Lipid Profile CC PCP [facility] Work Phone: Start: 09-20-2013 End: 09-20-2013 MMM MMM [facility] Work Phone: Start: 07-26-2013 End: 07-21-2013 *Hepatic Function Panel *Hepatic Function Panel [facility] Work Phone: Start: 07-04-2013 End: 07-26-2013 *Hepatic Function Panel *Hepatic Function Panel [facility] Work Phone: Start: 07-04-2013 End: 07-26-2013 Lipid panel [AGGREGATE] *Lipid Profile CC PCP [facility] Work Phone: Start: 06-10-2013 End: 07-21-2013 Lipid panel [AGGREGATE] *Lipid Profile CC PCP [facility] Work Phone: Start: 04-12-2013 End: 04-12-2013 Ecg routine ecg w/least 12 lds w/i&r EKG (In office) [facility] Work Phone: Start: 03-04-2013 End: 02-22-2013 *Hepatic Function Panel *Hepatic Function Panel [facility] Work Phone: Start: 03-04-2013 End: 02-22-2013 Lipid panel [AGGREGATE] *Lipid Profile [facility] Work Phone: Start: 03-03-2013 End: 03-03-2013 24 hour holter monitor 24 hour holter monitor [facility] Work Phone: Start: 03-03-2013 End: 03-03-2013 Ecg routine ecg w/least 12 lds w/i&r EKG (In office) [facility] Work Phone: Start: 03-03-2013 End: 03-03-2013 Follow Up Appt 6 months Follow Up Appt 6 months [facility] Work Phone: Start: 03-03-2013 End: 03-03-2013 PFM PFM [facility] Work Phone: Start: 08-25-2012 End: 10-06-2012 *Hepatic Function Panel *Hepatic Function Panel [facility] Work Phone: Start: 08-25-2012 End: 08-25-2012 Follow Up Appt 6 months Follow Up Appt 6 months [facility] Work Phone: Start: 08-25-2012 End: 10-06-2012 Lipid panel [AGGREGATE] *Lipid Profile [facility] Work Phone: Start: 08-04-2012 End: 08-25-2012 *Hepatic Function Panel *Hepatic Function Panel [facility] Work Phone: Start: 08-04-2012 End: 08-25-2012 Lipid panel [AGGREGATE] *Lipid Profile [facility] Work Phone: Start: 05-18-2012 End: 08-13-2012 *BMP *BMP [facility] Work Phone: Start: 05-18-2012 End: 08-13-2012 *CBC with Differential *CBC with Differential [facility] Work Phone: Start: 05-18-2012 End: 05-18-2012 Echocardiography Echocardiogram (complete) [facility] Work Phone: Start: 05-18-2012 End: 05-18-2012 Follow Up Appt 3 months Follow Up Appt 3 months [facility] Work Phone: Start: 05-18-2012 End: 08-13-2012 Magnesium *Magnesium [facility] Work Phone: Start: 05-18-2012 End: 05-18-2012 Nuclear stress test -exercise Nuclear stress test -exercise [facility] Work Phone: Start: 05-18-2012 End: 08-13-2012 Thyroid stimulating hormone (TSH) *TSH [facility] Work Phone: Start: 05-18-2012 End: 08-13-2012 Thyroxine (T4) *T4 (Total) [facility] Work Phone: Start: 02-05-2012 End: 03-02-2012 *Hepatic Function Panel *Hepatic Function Panel [facility] Work Phone: Start: 02-05-2012 End: 03-02-2012 Lipid panel [AGGREGATE] *Lipid Profile [facility] Work Phone: Start: 01-28-2012 End: 11-21-2011 *Hepatic Function Panel *Hepatic Function Panel [facility] Work Phone: Start: 01-28-2012 End: 11-21-2011 Lipid panel [AGGREGATE] *Lipid Profile [facility] Work Phone: Start: 11-28-2011 End: 11-28-2011 Follow Up Appt 6 months Follow Up Appt 6 months [facility] Work Phone: Hepatic function panel [facility] Lipid 1996 panel - S dayana or Plasma [facility] Patient Education [facility] Work Phone: Patient referral [facility] Work Phone: Payers Date Payer Category Payer Self-pay [id number] 2014 Unknown [id number] Unknown [id number] [id number] [id number] Unknown [id number] [id number] [id number] Unknown [id number] [id number] [id number] Unknown [id number] [id number] [id number] Unknown [id number] [id number] [id number] Social History Date Type Detail Facility Start: 06-07-2022 End: 10-06-2023 Tobacco smoking status NHIS Unknown if ever smoked [facility] Start: 1940 Sex Assigned At Male W [facility] Start: 01-28-2024 Tobacco smoking stat us NHIS Never smoked tobacco (finding) [facility] Sex Male [facility] Mental Status Date Assessment Result Facility 06-07-2022 Cognitive function Level Of Cons ciousness Awake;Alert;Appropriate;Follow s Commands [facility] Work Phone: Discharge summary 04-27-2025 Note Date & Type Note Facility 04-27-2025 Discharge summary Note Date/Time April 27, 2025 8:54am [facility] Physical Therapy [facility] [address] [place] [address] / REHABILITATION SERVICES DISCHARGE SUMMARY MR#: [id number] Acct: [id number] Name: OSWALDO FLORES Rep #: [id number] : 1940 85 From: Tommie Babcock. T, OCS Referring Dr.: Dr. Robert Mireles MD Status: REG RCR Insurance: [facility] [facility] [employer] [facility] HMO SELF PAY INSURANCE Discharge Summary D/C summary: It has been my pleasure to treat OSWALDO FLORES referred by Dr. Robert Mireles MD, with the diagnosis of RIGHT NECK PAIN WITH RADIATION TO FACE/JAW TRIGGER POINTS for a total of 7 visit(s). Discharge Date: 04/27/25 Please see the following information for a summary of their discharge status. Subjective Subjective: Doing better with movement pain 90 % beter Pain Right Neck: Pain Intensity (Out of 10): 0 Overall Improvement % Improvement: 90 Objective Objective/Function: POSTURE: mild forward posture PALAPTION: TTP tender right OA/occiput NEURO: denies paresthesia/tingling ,reflexes C5-6-7 2/3 AROM BUE: WFL CERVICAL ROM: flexion min loss ,extension mod loss ,lateral flexion MIN loss ,rotation min MMT: BUE strength 4/5 ,shoulder 4-/5 except deltoid 3+/5 ,infraspinatus 3/5( H/ORTC injury) Goals Goal 1:: Patient to be I with HEP for neck to improve posture and decrease pain Goal Progress: Goal Met Goal 2:: Patient to improve cervical ROM for function of recovery for ADLS and housework tasks. Goal Progress: Goal Met Goal 3:: Patient to improve neck oswestry score by 5 points to improve QOL and function . Goal Progress: Goal Met Goal 4:: Patient to demonstrate 50% improvement with less pain and improved function with ADLS and housework Plan Plan: D/C D/C Information Discharge Comments: hep d/c sentence: If there are questions or concerns regarding this patient's physical therapy, please feel free to call me at [phone]. Thank you for the referral of thispatient. Sincerely, Roberto Carlos Androsik, PT, Cert MDT, OCS Balance/Gait/Functional tests Balance/Special Test Scores Oswestry Low Back Score: 1 Oswestry Neck Score: 5 Improvement % Improvement: 90 <Electronically signed by Roberto Carlos Marquez PT, Cert. ALEXANDER, MICHELLE> 04/27/25 [id number] CC: Dr. Robert Mireles MD ~ JLA Signed [facility] Work Phone: Discharge summary 04-27-2025 Note Date & Type Note Facility 04-27-2025 Discharge summary [facility] Evaluation note 02-02-2025 Note Date & Type Note Facility 02-02-2025 Evaluation note Diagnosis Onset Date Resolution Atherosclerotic heart disease of [place] coronary artery without angina pectoris chronic February 02, 2025 8:10am Essential hypertension chronic 2024 8:10am Hyperlipidemia chronic February 02, 2025 8:10am Sinus bradycardia chronic February 8:10am [facility] Work Phone: Evaluation note 01-02-1997 Note Date & Type Note Facility 01-02-1997 Evaluation note Diagnosis Onset Date Essential hypertension chron ic History of coronary artery b ypass surgery January, chronic Hyperlipidemia chronic Sinus bradycardia [facility] Work Phone: Evaluation note Note Date & Type Note Facility Evaluation note No assessment information availa [facility] Work Phone: Evaluation note Note Date & Type Note Facility Evaluation note Diagnosis Onset Date Resolution Atherosclerotic heart disease of [place] coronary artery without angina pectoris chronic February 02, 2025 8:10am Hyperlipidemia chronic February 02, 2025 8:10am [facility] Work Phone: Reason for referral (narrative) Note Date & Type Note Facility Reason for referral (narrative) No reason for referral information available [facility] Work Phone: Chief Complaint and Reason for Visit Chief Complaint EORDER FROM DR MIRELES AND SUZETTE CHOI dizziness Chief Complaint dizziness E ORDERS/2 ORDERING DOCTORS Chief Complaint 2 ORDERS- DR MIRELES A ND MOODIS[place]W EORDERS Chief Complaint 1 Y FU CAD Coronary artery disease Reason for Visit Essential hypertensi on History of coronary artery bypass surgery Hyperlipidemia Sinus bradycardia Chief Complaint Admit Date 9 M FU February 02, 2025 8:10a m Reason for Visit Admit Date Atherosclerotic heart diseas e of [place] coronary artery without angina pectoris February 02, 2025 8:10am Hyperlipidemia February 02, 2025 8:10a m Chief Complaint Admit Date 9 M FU February 02, 2025 8:10a m 2 ORDERING DOCTORS 8/[address] Amie SOOD ONLY March 31, 2025 10:33am NECK PAIN RX HERE April 06, 2025 9:06am Reason for Visit Admit Date Atherosclerotic heart diseas e of [place] coronary artery without angina pectoris February 02, 2025 8:10am Essential hypertension February 02, 2025 8: 10am Hyperlipidemia February 02, 2025 8:10a m Sinus bradycardia February 02, 2025 8:10a m Chief Complaint Admit Date 9 M FU February 02, 2025 8:10a m 2 ORDERING DOCTORS 8/[address] Amie SOOD ONLY March 31, 2025 10:33am NECK PAIN RX HERE April 27, 2025 8:00am Advance Directives No Advanced Directives Records Found Advance Directive Response Recorded Date/ Time Name of Medical Power of Mold Worker LINDEN HERRERA June 07, 2022 8:34am Living Will Yes June 07 8:34am Power of Mold Worker Yes June 07, 2022 8:34am Advance Directive Response Recorded Date/ Time Living Will Yes June 07 7:34am Power of Mold Worker Yes June 07, 2022 7:34am Name of Medical Power of Mold Worker LINDEN HERRERA June 07, 2022 7:34am Advance Directive Response Recorded Date/ Time Living Will Yes June 07 8:34am Power of Mold Worker Yes June 07, 2022 8:34am Advance Directive Response Recorded Date/ Time Living Will Yes June 07 7:34am Power of Mold Worker Yes June 07, 2022 7:34am Advance Directive Response Recorded Date/ Time Advance Directives Yes January 27 8:22am Summary Purpose Family History No Family History Records Found Additional Source Comments Goals (unrecognized section and content) Goals may be documented in a n alternate sectionGoals may be documented in an alternate sectionGoals may be documented in an alternate sectionGoals may be documented in an alternate sectionGoals may be documented in an alternate sectionGoals may be documented in an alternate sectionGoals may be documented in an alternate sectionGoals may be documented in an alternate section Care Teams (unrecognized sec tion and content) Team Status: Active Member Role Status Dates Dr. Robert Mireles MD Family Provider Active Dr. Robert Mireles MD Primary Care Provider Active Team Status: Inactive Member Role Status Dates Dr. Robert Mireles MD Primary Care Provider Active Dr. Vanesa Arcos MD Attending Provider, Emergency Provider Active Team Status: Inactive Member Role Status Dates Dr. Robert Mireles MD Primary Care Provider Active Dr. Ronn Jacob MD Attending Provider, Referring Provider Active Team Status: Inactive Member Role Status Dates Dr. Robert Mireles MD Primary Care Provide r, Attending Provider, Referring Provider Active Dr. Ronn Jacob MD Other Provider Active Team Status: Inactive Member Role Status Dates Dr. Robert Mireles MD Primary Care Provide r, Attending Provider, Referring Provider Active Team Status: Inactive Member Role Status Dates Dr. Robert Mireles MD Primary Care Provider, Referring P rovider Active Suzette SERRANO, PA Attending Provider Active Team Status: Active Member Role Status Dates Dr. Robert Mireles MD Primary Care Provider Active Suzette SERRANO, [place] Referring Provider, Other Provider Active Dr. Twyla Figueredo MD Attending Provider Active Team Status: Inactive Member Role Status Dates Dr. Robert Mireles MD Primary Care Provider Active Suzette SERRANO, PA Attending Provider, Referr ing Provider Active Team Status: Active Member Role/Relationship Status Dates Dr. Robert Mireles MD Family Provider Active Dr. Robert Mireles MD Primary Care Provider Active Team Status: Inactive Member Role/Relationship Status Dates Dr. Robert Mireles MD Primary Care Provider Active Start: February 02, 2025 End: February 02, 2025 Dr. Robert Mireles MD Referring Provider Active St art: February 02, 2025 End: February 02, 2025 Dr. Arsh Jimenez MD Attending Provider Active Start: February 02, 2025 End: February 02, 2025 Team Status: Active Member Role/Relationship Status Dates Dr. Robert Mireles MD Primary Care Provider Active Team Status: Inactive Member Role/Relationship Status Dates Dr. Robert Mireles MD Primary Care Provider Active Start: March 31, 2025 End: March 31, 2025 Dr. Robert Mireles MD Attending Provider Active St art: March 31, 2025 End: March 31, 2025 Dr. Robert Mireles MD Referring Provider Active St art: March 31, 2025 End: March 31, 2025 Dr. Arsh Jimenez MD Other Provider Active St art: March 31, 2025 End: March 31, 2025 Team Status: Active Member Role/Relationship Status Dates Dr. Robert Mireles MD Primary Care Provider Active Start: April 06, 2025 Dr. Robert Mireles MD Attending Provider Active St art: April 06, 2025 Dr. Robert Mireles MD Referring Provider Active St art: April 06, 2025 Team Status: Active Member Role/Relationship Status Dates Dr. Robert Mireles MD Primary care physician Active Team Status: Inactive Member Role/Relationship Status Dates Dr. Robert Mireles MD Primary care physician Active Start: February 02, 2025 End: February 02, 2025 Dr. Robert Mireles MD Referring Provider Active St art: February 02, 2025 End: February 02, 2025 Dr. Arsh Jimenez MD Attending physician Active Start: February 02, 2025 End: February 02, 2025 Team Status: Inactive Member Role/Relationship Status Dates Dr. Robert Mireles MD Primary care physician Active Start: March 31, 2025 End: March 31, 2025 Dr. Robert Mireles MD Attending physician Active S tart: March 31, 2025 End: March 31, 2025 Dr. Robert Mireles MD Referring Provider Active St art: March 31, 2025 End: March 31, 2025 Dr. Arsh Jimenez MD Nurse Practitioner Active Start: March 31, 2025 End: March 31, 2025 Team Status: Inactive Member Role/Relationship Status Dates Dr. Robert Mireles MD Primary care physician Active Start: April 27, 2025 End: April 27, 2025 Dr. Robert Mireles MD Attending physician Active S tart: April 27, 2025 End: April 27, 2025 Dr. Robert Mireles MD Referring Provider Active St art: April 27, 2025 End: April 27, 2025 (unrecognized sect ion and content) No Status Records Found INFORMATION SOURCE (unrecogn ized section and content) DATE CREATED AUTHOR 05/07/2025 [facility] FOR RECORDS PERTAINING TO PATIENTS WHO ARE [...] BE BASED ON THE PRIMARY CLINICAL RECORDS. [facility] [employer] [facility]. provides no warranty or guarantee of the accuracy or completeness of information in this document.
[2025-07-29 10:12] LABS: Hematocrit 41.7 % (40-54); Hemoglobin 14.6 g/dL (13.0-16.5); Immature Granulocytes Count 0.040 X10^3/uL (0.0-0.0); Mean Corp Hgb Conc 35.0 g/dL (32-36); Mean Corpuscular Volume 92.3 fL (80-94); Mean Platelet Vol. 9.6 fl (6.2-12.0); NRBC Flagged by Analyzer 0 % (0-5); Platelet Count 277 K/mm3 (150-450); RBC Distribution Width CV 12.6 % (11.6-14.6); RBC Distribution Width SD 42.4 fl (35.1-43.9); Red Blood Count 4.52 M/mm3 (4.6-6.2); White Blood Count 9.8 K/mm3 (4.4-11.0)
[2025-07-29 10:53] LABS: AST(SGOT) 28 U/L (<=37); Alanine Aminotransfer ALT/SGPT 21 U/L (<=46); Albumin, Serum 4.1 g/dL (3.4-4.8); Alkaline Phosphatase 83 U/L (40-129); Anion Gap 11 (7-18); BUN 13 mg/dL (4-19); BUN/Creat Ratio 14.8 RATIO (10-20); Calcium,Total 9.8 mg/dL (7.6-11.0); Carbon Dioxide 22.3 mmol/L (20.0-29.0); Chloride 101 mmol/L (96-106); Globulin 3.6 g/dL (2.2-4.2); Glucose 108 mg/dL (70-99); Potassium 4.0 mmol/L (3.5-5.1); Vitamin B12 948 pg/mL (180-914); Vitamin D,25 Hydroxy 32.2 ng/mL (30-100)
[2025-07-29 11:19] LABS: Creatinine, Urine (random) 113.00 mg/dL (39.00-259.00); Microalbumin,Random Urine 43.2 mg/L (<20 mg/L)
[2025-07-29 12:11] LABS: CRP < 3.00 mg/L (0.0-3.0)
[2025-07-30 09:08] LABS: Lyme Scn Total Ab w/Rflx Negative (Negative)
[2025-08-01 12:08] LABS: ANTINUCLEAR ANTIBODIES DIRECT Positive (Negative)
== END | disposition home or self-care (01) ==
LOC: MTLAB 09:23
PROVIDERS: PCP Family Medicine; Referring Provider Family Medicine; Visit Provider Family Medicine
DX: R20.2 Paresthesia of skin (principal); I10 Essential (primary) hypertension; E55.9 Vitamin D deficiency, unspecified
CPT/HCPCS: 36415; 80053; 82043; 82306; 82570; 82607; 84443; 85025; 86038; 86140; 86618

== ENCOUNTER → 2025-08-02 | Outpatient (CLI) | payer MEDICARE, SELFPAY ==
[2025-08-02 15:00] LABS: AST(SGOT) 34 U/L (<=37); Alanine Aminotransfer ALT/SGPT 23 U/L (<=46); Albumin, Serum 4.0 g/dL (3.4-4.8); Alkaline Phosphatase 78 U/L (40-129); Anion Gap 9 (7-18); BUN 11 mg/dL (4-19); BUN/Creat Ratio 13.4 RATIO (10-20); Calcium,Total 9.6 mg/dL (7.6-11.0); Carbon Dioxide 24.0 mmol/L (20.0-29.0); Chloride 103 mmol/L (96-106); Globulin 3.3 g/dL (2.2-4.2); Glucose 105 mg/dL (70-99); Potassium 4.2 mmol/L (3.5-5.1)
== END | disposition home or self-care (01) ==
LOC: LAB 13:14
PROVIDERS: PCP Family Medicine; Referring Provider Family Medicine; Visit Provider Family Medicine
DX: R76.89 Other specified abnormal immunological findings in serum (principal)
CPT/HCPCS: 36415; 80053; 86038